=== PATIENT | male | born 1960 | race African-American/Black ===

== ENCOUNTER 2017-02-11 09:15 | Inpatient (IN) ==
[2017-02-11] MEDS ORDERED: ASPIRIN 325 MG TABLET PO STA (09:52)
[2017-02-11] MEDS ORDERED: NITROGLYCERIN 2% OINT 1 INCH/GM PACK TOP STA (09:52)
[2017-02-11] MEDS ORDERED: SODIUM CHLORIDE 0.9% 1,000 ML IV STA (09:52)
--- NOTE | 2017-02-11 09:57 | EKG Report ---
Stationary ECG Study [facility] ER Test Date: 02/11/2017 9:23:40 AM Pat Name: JASSI MATTHEW Department: Room: Gender: M Proctologist: : 1960 Requested by: Romeo Simmons Order Number: [id number] Reading MD: ORI SIM Intervals [place] Rate: 109 P: 62 NC: 148 QRS: 15 QRSD: 96 T: 80 QT: 364 QTc: 428 Interpretive Statements SINUS TACHYCARDIA NONSPECIFIC T-WAVE ABNORMALITY Electronically Signed On 02-13-17 13:54:32 CDT by ORI SIM [email or web address]
[2017-02-11 09:58] LABS: Basophils % 0.1 % (0.0-0.8); Eosinophils % 0.3 % (0.00-10.9); Hemoglobin 8.5 GM/DL (14.0-18.0); Immature Granulocytes % 0.2 %; Immature Granulocytes Absolute 0.02 #; Lymphocytes # 1.2 10*3/uL (1.4-4.0); Mean Corpuscular HGB Conc 32.7 GM/DL (32-36); Mean Corpuscular Hemoglobin 29 PG (27-34); Mean Corpuscular Volume 89.3 FL (87-102); Mean Platelet Volume 10.3 FL (9.6-12.0); Monocytes # 0.9 10*3/uL (0.11-0.8); Monocytes % 8.9 % (1.7-12.7); Neutrophils # 7.7 10*3/uL (1.4-7.4); Neutrophils % 78.5 % (38.7-73.9); Platelet Count 398 T/CUMM (130-400); Red Blood Count 2.91 MC/CUMM (3.8-5.5); White Blood Count 9.8 T/CUMM (4-12)
[2017-02-11] MEDS ORDERED: MORPHINE 2 MG/1 ML SYRINGE IV STA (10:00)
[2017-02-11] MEDS ORDERED: DIAZEPAM 10 MG/2 ML SYRINGE IV STA (10:00)
[2017-02-11] MEDS ORDERED: ASPIRIN 325 MG TABLET ONE (10:02)
[2017-02-11] MEDS ORDERED: NITROGLYCERIN 2% OINT 1 INCH/GM PACK TOP ONE (10:02)
[2017-02-11] MEDS ORDERED: MORPHINE 2 MG/1 ML SYRINGE ONE (10:02)
[2017-02-11 10:26] LABS: Alanine Aminotransferase 18 U/L (16-61); Albumin 2.2 G/DL (3.4-5.0); Alkaline Phosphatase 95 U/L (45-117); Aspartate Amino Transferase 14 U/L (0-37); Bilirubin,Total < 0.39 MG/DL (0.2-1.0); Blood Urea Nitrogen 8 MG/DL (7-18); Calcium 9.5 MG/DL (8.5-10.1); Glucose 93 MG/DL (74-106); Osmolality,Calculated 270.8 MOS/KG (273-304); Potassium 3.9 MMOL/L (3.5-5.1); Sodium 137 MMOL/L (136-145); Total Protein 6.6 G/DL (6.4-8.3)
[2017-02-11] MEDS ORDERED: DIAZEPAM 10 MG/2 ML SYRINGE ONE (10:37)
--- NOTE | 2017-02-11 10:55 | XRay Report ---
Exam: XR chest 1V portable Indication: Midline chest pain Comparison study: None Findings: The heart, mediastinum, and bony structures are within normal limits. Median sternotomy wiring is noted. There is no focal consolidation, pneumothorax or pleural effusion identified. Surgical hardware noted within the lower cervical spine is partially imaged. Impression: No acute cardiopulmonary process. PROCEDURE INTERPRETED AT [facility] DEPARTMENT OF RADIOLOGY Final Report Signed by: Trino Barajas
[2017-02-11 10:57] LABS: Apearance,Urine CLOUDY (Clear); Blood, Urine Negative (Negative); Glucose,Urine (UA) Negative (Negative); Ketones,Urine 20 mg/dL (Negative); Mucus,Urine Many /LPF (Occasional); Nitrite,Urine Positive (Negative); Protein,Urine >=500 MG/DL; RBC,Urine 36 /HPF (0-4); Urine Color Amber (Yellow); Urine Specific Gravity 1.031 (1.001-1.035); Urine Urobilinogen < 2.0 EU/DL (0.2-1.0); WBC,Urine 77 /HPF (0-6)
[2017-02-11 10:58] LABS: Bilirubin,Urine Small mg/dL (Negative)
[2017-02-11] MEDS ORDERED: PIPERACILLIN/TAZOBACTAM 3,375 MG in SODIUM CHLORIDE 0.9% 100 ML IV STA (11:33)
--- NOTE | 2017-02-11 11:33 | Emergency Department Note ---
Leti Valverde Hilary, am scribing for, and in the presence of, Romeo Simmons Jr., MD 09:51. Iris Valverde Marvin Jr., MD, personally performed the services described in this documentation, ascribed by Yocasta Landeros in my presence, and it is both accurate and complete 133 . Arrival - Arrival Chief Complaint: Chest Pain ED Nursing Triage Note: [facility]. pt c/o muscle pain last night. then this am started c/o cp and sob. pt doesnt like the residential he is in. pt also has bilateral shoulder pain Mode of Arrival: Stretcher Limitations: No Limitations Source: Patient, Family, Old Records Reviewed ([facility] records as well as previous ER visits reviewed, patient seen here November 26, 2016. Patient had been drinking and fell out of his chair, he was hypotensive, lactic acidosis, alcoholic ketoacidosis and a spinal cord injury at that time. He was transferred to [facility] in [place]), RN Notes Reviewed - History of Present Illness HPI Narrative: Pt is a 56 y/o black male brought to the ED via EMS from [facility] with c/o shoulder muscle spasms which onset last night. His son is in the room and reports that in December he fell on his head which might have knocked the plate in his neck loose because now he can't move from the neck down. Pt states that he was at [facility] last night and told them that he was having pain in both of his shoulders but they didn't give him his pain medication, just put a bunch of pillows around him and "locked him in his room". Pt confirms pain in both shoulders, like muscle spasms, and bed sores but denies fever, chills, nausea or vomiting. No other complaints or problems stated in the ED. patient says they have been pulling him up at [facility] by his shoulders and he thinks that is beckham hurting. He is also not had his pain medication Onset (ago): day(s) Consistency: constant Quality: other (spasms) Allergies/Adverse Reactions: Allergies Allergy/AdvReac Type Severity Reaction Status Date / Time No Known Allergies Allergy Verified 11/26/16 10:10 Home Medications: Home Medications Medication Instructions Recorded Confirmed Type Albuterol/Ipratropium Neb [Duoneb] 3 ml RESP TX RT Q6H PRN 02/11/17 02/11/17 History Apixaban [Eliquis] 5 mg PO BID 02/11/17 02/11/17 History Aspirin EC Tab 81 mg PO DAILY 02/11/17 02/11/17 History Bisacodyl Supp [Dulcolax Supp] 10 mg RECTAL DAILY PRN 02/11/17 02/11/17 History Citalopram Hydrobromide [Celexa] 10 mg PO DAILY 02/11/17 02/11/17 History Cyclobenzaprine HCl 5 mg PO TID PRN 02/11/17 02/11/17 History Famotidine 20 mg PO DAILY 02/11/17 02/11/17 History Insulin Aspart [NovoLOG] 0 unit SUBCUT ACHS PRN 02/11/17 02/11/17 History Lisinopril 20 mg PO DAILY 02/11/17 02/11/17 History Magnesium Oxide 400 mg PO BID 02/11/17 02/11/17 History Polyvinyl Alcohol 1.4% Oph Amena 1 drop BOTH EYES QID PRN 02/11/17 02/11/17 History [Artificial Tears Oph Soln] Ranitidine Tab [Zantac Tab] 150 mg PO DAILY PRN 02/11/17 02/11/17 History Simvastatin [Zocor] 20 mg PO BEDTIME 02/11/17 02/11/17 History diphenhydrAMINE HCl 25 mg PO Q6H PRN 02/11/17 02/11/17 History [diphenhydrAMINE Tab] Review of System - Review of System 12 point system: reviewed and no additional remarkable complaints except as stated - Review of System Constitutional: Absent: chills, fever Gastrointestinal: Present: nausea, vomiting Musculoskeletal: Present: other (Shoulder muscle spasms in both left and right) Skin: Present: other (bed sores ) Medical,Surgical,& Family Hx - Medical History Cardio: History of: CAD, Hypertension Genitourinary: History of: Recurring Urinary Tract Infections Hematology: History of: Anemia Other: History of: Miscellaneous Medical Problems (quadriplegia, pressure wounds ) - Surgical History Cardiac Surgeries: Sugical HX of: Cardiac Surgery (cabg) - Social History Smoking Status: Unknown if ever smoked Frequency of Alcohol Use: None Type of Drug Use: None Functional capacity: bed bound Exam Physical Examination: General: Well-developed well-nourished, no apparent distress. Head: Normocephalic, atraumatic. Eyes: PERRLA, EOMI. Nose: No obvious acute deformities or discharge. Mouth: No obvious acute injury. Neck: without obvious pain. No midline tender to palpation. Lymphatic: no significant lymphadenopathy noted. Lungs: Clear to auscultation bilaterally, normal and equal air movement bilaterally, no obvious rales or wheezing. Heart: regular rate and rhythm, no obvious mummers. Abdomen: Soft nontender, nondistended, normal active bowel sounds. PEG tube noted Skin: Large, full-thickness decubitus ulcer noted in the sacral area, covered with bandage, also decubitus noted on his right foot Musculoskeletal: Legs contracted, poor muscle mass Neurological: No focal findings, cranial nerves II through XII grossly normal. Patient with very limited use of his arms and essentially none in his legs, talks without difficulty, alert and oriented, Psychiatric: Appropriate mood.. : [place] in place Vital Signs: Vital Signs Temperature 98.5 F 02/11/17 09:21 Pulse Rate 108 H 02/11/17 09:21 Respiratory Rate 18 02/11/17 09:21 Blood Pressure 74/55 02/11/17 09:21 O2 Sat by Pulse Oximetry 100 02/11/17 09:21 Course Course Narrative: Differential diagnosis, acute on chronic pain, severe decubiti, urinary tract infection, hypotension, tachycardia, muscle spasms, - Reevaluation(s) Reevaluation #1: Patient with multiple issues identified. Patient is a quad, anemia, decubitus ulcers, urinary tract infection, I discussed this patient with the hospitalist service and they accept patient for admission. Patient persistently hypotensive but clinically has not changed. We do not know if this patient's baseline is but quadriplegia is commonly have a lower blood pressure. Will monitor this closely. prison notes indicate CODE STATUS is full code Time: 11:15 Results - Labs CBC & BMP: 02/11/17 09:34 02/11/17 09:34 Lab Results: I have reviewed the patients labs Labs: Laboratory Tests 02/11/17 09:34 WBC 9.8 RBC 2.91 L Hgb 8.5 L Hct 26.0 L MCV 89.3 MCH 29 MCHC 32.7 RDW 14.0 Plt Count 398 MPV 10.3 Neut % (Auto) 78.5 H Lymph % (Auto) 12.0 L Ada % (Auto) 8.9 Eos % (Auto) 0.3 Baso % (Auto) 0.1 Neut # (Auto) 7.7 H Lymph # (Auto) 1.2 L Ada # (Auto) 0.9 H Eos # (Auto) 0.0 Baso # (Auto) 0.0 Immature Gran % 0.2 Nucleated RBC % 0.0 Immature Gran # 0.02 Nucleated RBCs # 0.00 Laboratory Tests 02/11/17 02/11/17 09:34 09:34 Sodium 137 Potassium 3.9 Chloride 99 Carbon Dioxide 28 Anion Gap 13.9 BUN 8 Creatinine 0.50 L GFR Calculation 180 BUN/Creatinine Ratio 16.00 Glucose 93 Calculated Osmolality 270.8 L Calcium 9.5 Total Bilirubin < 0.39 AST 14 ALT 18 Alkaline Phosphatase 95 Troponin I < 0.015 Total Protein 6.6 Albumin 2.2 L Globulin 4.4 H Albumin/Globulin Ratio 0.5 L Laboratory Tests 02/11/17 10:48 Urine Color Yisel Urine Appearance Cloudy Urine pH 6.0 Ur Specific Lenore 1.031 Urine Protein >=500 Urine Glucose (UA) Negative Urine Ketones 20 Urine Blood Negative Urine Nitrate Positive H Urine Bilirubin Small H Urine Urobilinogen < 2.0 H Urine Leukocytes Small H Urine RBC 36 Urine WBC 77 Urine Mucus Many - EKG EKG results: interpreted by [facility] (Heart rate 109, narrow complex QRS complexes without obvious acute ST changes. Normal sinus rhythm) - Diagnostic Findings Procedure: Chest x-ray: report reviewed by me, image reviewed by me (No acute cardiopulmonary process) Critical Care Time Critical Care Time: Yes Total Critical Care Time: 30 (Hypotension, quadriplegia, urinary tract infection ,) Disposition Clinical Impression: Urinary tract infection, Anemia, Multiple decubitus ulcers, Quadriplegic Case discussed with: patient Disposition: Still a Patient Condition: Guarded Time of Disposition: 11:23
[2017-02-11] MEDS ORDERED: ONDANSETRON 4 MG/2 ML VIAL IV PRN (11:48)
[2017-02-11] MEDS ORDERED: PIPERACILLIN/TAZOBACTAM 3,375 MG in SODIUM CHLORIDE 0.9% 100 ML IV SCH (12:00)
[2017-02-11] MEDS ORDERED: ENOXAPARIN 40 MG/0.4 ML SYRINGE SUBCUT SCH (12:00)
[2017-02-11 12:16] LABS: Risk Ratio 2.71; VLDL CHOLESTEROL 11.6 MG/DL
[2017-02-11] MEDS ORDERED: PIPERACILLIN/TAZOBACTAM 3,375 MG VIAL IV ONE (12:23)
--- NOTE | 2017-02-11 12:38 | Hospitalist History & Physical ---
<Afua Snow - Last Filed: 02/11/17 11:56> Assessment and Plan (1) Decubital ulcer Status: Acute Assessment and plan: We will obtain cultures, start empiric antibiotics, and consult surgery to evaluate. Current Visit: Yes Qualifiers: Pressure ulcer location: sacral region Pressure ulcer stage: unspecified pressure ulcer stage Qualified Code(s): L89.159 - Pressure ulcer of sacral region, unspecified stage (2) Urinary tract infection Status: Acute Assessment and plan: We feel that this is chronic in nature. We will start empiric antibiotics and monitor. Current Visit: Yes (3) Anemia Status: Acute Assessment and plan: Hemoglobin and hematocrit noted at 8.5 and 26.0 at the time of admission. We will recheck and monitor. If levels continue to drop we may need to transfuse. Current Visit: Yes History of Present Illness Chief complaint: chest pain and shortness of breath History of present illness: This is a 56-year-old chronically ill male that presented to the ED at [facility] from the [place] [facility] here [facility] for the evaluation of chest pain and shortness of breath. The patient has a very complex medical history significant for coronary artery disease, hypertension, chronic urinary tract infections, anemia, quadriplegia, and chronic pressure ulcerations. The patient has a surgical history significant for coronary artery bypass graft. At the time of presentation the patient verbalized multiple complaints regarding the care he was receiving at this assisted facility. He attributed all of his current health complaints to the treatment that he is received therapy. He has main complaint at the time of presentation is muscle spasms. He reports an onset on last night. At the time of ED presentation the patient was grossly hypertensive with a systolic blood pressure above 200. Labs were obtained at the time of presentation, which reported a hemoglobin at 8.5, hematocrit at 26.0, neutrophil % at 78.5, lymphocytes % at 12.0, neutrophil #at 7.7, lymphocytes # at 1.2, and monocytes #at 0.9. Chemistry panels were obtained which reported a sodium at 137, potassium 3.9, chloride at 99, carbon dioxide at 28, anion gap at 13.9, BUN at 8, creatinine at 0.50, albumin at 2.2, globulin at 4.4, and calculated osmolality at 270.8. Urinalysis was obtained which was significant for positive findings of nitrite, small amount of bilirubin, small amount of leukocytes, urine RBCs at 36, urine WBCs of 77, and urobilinogen greater than 2.0. Chest x-ray was obtained and essentially benign with no acute cardiopulmonary processes noted. After brief discussion with both Dr. Simmons and Dr. Abdul, the patient will be admitted to the hospitalist services for continuation of care. Home Medications Medication Instructions Recorded Confirmed Type Albuterol/Ipratropium Neb [Duoneb] 3 ml RESP TX RT Q6H PRN 02/11/17 02/11/17 History Apixaban [Eliquis] 5 mg PO BID 02/11/17 02/11/17 History Aspirin EC Tab 81 mg PO DAILY 02/11/17 02/11/17 History Bisacodyl Supp [Dulcolax Supp] 10 mg RECTAL DAILY PRN 02/11/17 02/11/17 History Citalopram Hydrobromide [Celexa] 10 mg PO DAILY 02/11/17 02/11/17 History Cyclobenzaprine HCl 5 mg PO TID PRN 02/11/17 02/11/17 History Famotidine 20 mg PO DAILY 02/11/17 02/11/17 History Insulin Aspart [NovoLOG] 0 unit SUBCUT ACHS PRN 02/11/17 02/11/17 History Lisinopril 20 mg PO DAILY 02/11/17 02/11/17 History Magnesium Oxide 400 mg PO BID 02/11/17 02/11/17 History Polyvinyl Alcohol 1.4% Oph Amena 1 drop BOTH EYES QID PRN 02/11/17 02/11/17 History [Artificial Tears Oph Soln] Ranitidine Tab [Zantac Tab] 150 mg PO DAILY PRN 02/11/17 02/11/17 History Simvastatin [Zocor] 20 mg PO BEDTIME 02/11/17 02/11/17 History diphenhydrAMINE HCl 25 mg PO Q6H PRN 02/11/17 02/11/17 History [diphenhydrAMINE Tab] Allergies Allergy/AdvReac Type Severity Reaction Status Date / Time No Known Allergies Allergy Verified 11/26/16 10:10 Medical,Surgical,& Family Hx - Medical History Cardio: History of: CAD, Hypertension Genitourinary: History of: Recurring Urinary Tract Infections Hematology: History of: Anemia Other: History of: Miscellaneous Medical Problems (quadriplegia, pressure wounds ) - Surgical History Cardiac Surgeries: Sugical HX of: Cardiac Surgery (cabg) - Social History Smoking Status: Unknown if ever smoked Frequency of Alcohol Use: None Type of Drug Use: None 12 point system: reviewed and no additional remarkable complaints except as stated Exam - Constitutional Vitals: Period Temp Pulse Resp BP Sys/Agustin Pulse Ox Last 24 Hr 98.5 F-98.5 F 108-108 18-18 74-74/55-55 100 General appearance: normal weight, no acute distress - Head Head exam: Present: normal inspection, normocephalic, atraumatic - Eye Eye exam: Present: EOMI. Absent: conjunctival injection, nystagmus Pupils: Present: RHINA, normal accommodation - ENT ENT exam: Present: normal exam, normal external ear exam, normal oropharynx - Neck Neck exam: Present: normal inspection. Absent: lymphadenopathy, meningismus, tenderness, thyromegaly - Respiratory Respiratory exam: Present: clear to auscultation bilaterally. Absent: rales, rhonchi, stridor, wheezes - Cardiovascular Cardiovascular exam: Present: bradycardia, regular rate and rhythm. Absent: carotid bruit, diastolic murmur, gallop, JVD, rubs, systolic murmur - GI/Abdominal GI/Abdominal exam: Present: normal bowel sounds, soft. Absent: tenderness, rebound - Extremities Exam Extremities exam: Present: other (contractures noted to the bilateral lower extremties) - Back Exam Back exam: Present: muscle spasm, other - Neurological Exam Neurological exam: Present: alert, oriented X3 - Psychiatric Psychiatric exam: Present: normal affect, normal mood - Skin Skin exam: Present: normal color, warm Results - Labs CBC & BMP: 02/11/17 09:34 02/11/17 09:34 Lab Results: I have reviewed the past 24 hour labs <Austin Abdul - Last Filed: 02/11/17 14:18> History of Present Illness History of present illness: Mr. Montana is a 56 year old male Exam - Constitutional Vitals: Period Temp Pulse Resp BP Sys/Agustin Pulse Ox Last 24 Hr 97.9 F-98.5 F 99-108 16-18 74-95/43-55 100 Results - Labs CBC & BMP: 02/11/17 09:34 02/11/17 09:34
[2017-02-11] MEDS ORDERED: NOREPINEPHRINE 8 MG in SODIUM CHLORIDE 0.9% 242 ML IV SCH (14:30)
[2017-02-11 14:50] LABS: Basophils % 0.1 % (0.0-0.8); Eosinophils % 0.4 % (0.00-10.9); Hematocrit 21.7 VOL% (42.0-52.0); Hemoglobin 7.2 GM/DL (14.0-18.0); Immature Granulocytes % 0.3 %; Immature Granulocytes Absolute 0.03 #; Lymphocytes # 1.1 10*3/uL (1.4-4.0); Lymphocytes % 9.8 % (21.2-54.2); Mean Corpuscular HGB Conc 33.2 GM/DL (32-36); Mean Corpuscular Hemoglobin 29 PG (27-34); Mean Corpuscular Volume 88.2 FL (87-102); Mean Platelet Volume 10.1 FL (9.6-12.0); Monocytes # 1.1 10*3/uL (0.11-0.8); Monocytes % 9.8 % (1.7-12.7); Neutrophils # 8.7 10*3/uL (1.4-7.4); Neutrophils % 79.6 % (38.7-73.9); Platelet Count 345 T/CUMM (130-400); Red Blood Count 2.46 MC/CUMM (3.8-5.5); Red Cell Distribution Width 14.2 % (9.3-17.3); White Blood Count 10.9 T/CUMM (4-12)
[2017-02-11] MEDS: MEROPENEM 1,000 MG in SODIUM CHLORIDE 0.9% 100 ML IV SCH ×2 (15:09→23:23)
[2017-02-11 15:10] LABS: Ferritin 641.9 ng/ml (26-388); Troponin I Only < 0.015 NG/ML (0.00-0.045)
[2017-02-11] MEDS: SODIUM CHLORIDE 0.9% 1,000 ML IV SCH ×2 (15:10→20:21)
[2017-02-11 15:17] LABS: Lactic Acid 0.7 MMOL/L (0.4-2.0)
[2017-02-11 15:17] LABS: Folate 19.4 NG/ML (5.4-24.0); Vitamin B12 382 PG/ML (211-911)
[2017-02-11 15:51] LABS: Sedimentation Rate-Westergren 135 MM/HR (0-20)
[2017-02-11] MEDS ORDERED: SODIUM CHLORIDE 0.9% 250 ML IV PRN (16:09)
[2017-02-11] MEDS: VANCOMYCIN INJ 1,250 MG in SODIUM CHLORIDE 0.9% 250 ML IV SCH (17:48)
[2017-02-11] MEDS: MORPHINE 2 MG/1 ML SYRINGE IV PRN (20:22)
[2017-02-11] MEDS: CYCLOBENZAPRINE 10 MG TABLET PO PRN (20:22)
[2017-02-11] MEDS: DOCUSATE SODIUM 100 MG CAPSULE PO SCH (20:22)
[2017-02-11] MEDS: APIXABAN 5 MG TABLET PO SCH (20:22)
--- NOTE | 2017-02-11 20:44 | CT Report ---
Exam: CT chest PE study The total DLP is 341 mGy*cm. Date: 02/11/2017 2:01 PM Indication: Hypertension, chest pain Comparison: Chest radiograph dated 02/11/2017 Technical: Images were obtained from the thoracic inlet through the lung bases with 80 cc of Omnipaque 350 with axial and coronal imaging available for review. Dose reduction: This CT exam was performed using one or more of the following dose reduction techniques: Automated exposure control, automated adjustment of the mA and/or KV according to patient size, or use of iterative reconstruction technique. Findings: Pulmonary arteries: Please note, the degree of pulmonary arterial contrast opacification is severely suboptimal due to contrast bolus timing. Evaluation is made within these technical confines. Pulmonary arteries are patent and well-opacified with no filling defects to suggest pulmonary emboli. Distal segmental/subsegmental pulmonary arteries are poorly evaluated due to contrast bolus timing and/or patient motion. Mediastinum/vessels/lymph nodes: Heart and great vessels appear unremarkable. There is no evidence of pericardial effusion. The aorta and great vessels appear widely patent. There is no adenopathy in the chest. Lungs: The lungs are clear. There is no pneumothorax or pleural effusion. There is no focal consolidation. No suspicious pulmonary nodules or masses are identified. Thyroid: Thyroid gland appears within normal limits. No acute abnormality is identified within the visualized upper abdomen. Gastric feeding tube is partially imaged within the upper abdomen/gastric lumen. BONES: No acute or suspicious appearing osseous abnormalities are identified. Median sternotomy wiring is noted. Partially imaged cervical fusion hardware. Impression: 1. Severely suboptimal contrast bolus timing limits evaluation. No definite central or saddle pulmonary emboli are visualized. 2. No other acute abnormality within the chest or upper abdomen to explain patient's symptoms. PROCEDURE INTERPRETED AT [facility] DEPARTMENT OF RADIOLOGY Final Report Signed by: Trino Barajas
[2017-02-12] MEDS: VANCOMYCIN INJ 1,250 MG in SODIUM CHLORIDE 0.9% 250 ML IV SCH ×2 (04:23→15:35)
[2017-02-12] MEDS: SODIUM CHLORIDE 0.9% 1,000 ML IV SCH ×4 (04:24→17:26)
[2017-02-12 04:36] LABS: Hemoglobin 9.5 GM/DL (14.0-18.0)
[2017-02-12 04:49] LABS: Basophils % 0.1 % (0.0-0.8); Eosinophils # 0.1 10*3/uL (0.0-0.87); Eosinophils % 1.5 % (0.00-10.9); Hematocrit 29.3 VOL% (42.0-52.0); Hemoglobin 9.7 GM/DL (14.0-18.0); Immature Granulocytes % 0.3 %; Immature Granulocytes Absolute 0.02 #; Lymphocytes # 1.3 10*3/uL (1.4-4.0); Lymphocytes % 17.6 % (21.2-54.2); Mean Corpuscular HGB Conc 33.1 GM/DL (32-36); Mean Corpuscular Hemoglobin 29 PG (27-34); Mean Corpuscular Volume 88.8 FL (87-102); Mean Platelet Volume 10.4 FL (9.6-12.0); Monocytes % 13.4 % (1.7-12.7); Neutrophils # 4.9 10*3/uL (1.4-7.4); Neutrophils % 67.1 % (38.7-73.9); Platelet Count 349 T/CUMM (130-400); Red Cell Distribution Width 14.4 % (9.3-17.3); White Blood Count 7.3 T/CUMM (4-12)
[2017-02-12 05:05] LABS: Bilirubin,Total 0.8 MG/DL (0.2-1.0); Calcium 8.4 MG/DL (8.5-10.1); Magnesium 1.5 MG/DL (1.8-2.4); Osmolality,Calculated 278.1 MOS/KG (273-304); Potassium 3.6 MMOL/L (3.5-5.1); Total Protein 5.9 G/DL (6.4-8.3)
[2017-02-12] MEDS: MEROPENEM 1,000 MG in SODIUM CHLORIDE 0.9% 100 ML IV SCH ×3 (06:33→21:47)
[2017-02-12] MEDS ORDERED: GLUCAGON 1 MG VIAL IM PRN (08:02)
[2017-02-12] MEDS ORDERED: MAGNESIUM SULF RIDER 2 GM in PREMIX 1 EACH IV ONE (08:02)
[2017-02-12] MEDS ORDERED: DEXTROSE 50% 25 GM/50 ML VIAL IV PRN (08:02)
--- NOTE | 2017-02-12 09:06 | General Surgery Consult Note ---
Assessment and Plan - Time spent with patient Time spent with patient: Greater than 30 minutes (1) Decubital ulcer Status: Acute Assessment and plan: Impression: Decubitus ulcer of the sacrum stage III Plan local care primarily with Santyl try to clean the base. Current Visit: Yes Qualifiers: Pressure ulcer location: sacral region Pressure ulcer stage: stage 3 Qualified Code(s): L89.153 - Pressure ulcer of sacral region, stage 3 (2) Decubitus ulcer Status: Acute Current Visit: Yes (3) Decubitus ulcer of right heel, stage 2 Status: Acute Assessment and plan: Impression: Decubitus ulcer right heel stage II Plan: Local wound care Current Visit: Yes (4) Quadriplegia Status: Acute Assessment and plan: Impression: Quadriplegia with some spastic disease and contracture of the lower extremities Current Visit: Yes History of Present Illness Chief complaint: Sacral and right heel ulcers. History of present illness: Mr. Montana is a 56 year old male who presents with a history of some spinal disease or surgery resulted in a quadriplegia with spasm. He is now bedridden patient with contractures of lower extremities at this time. He came in with possible sepsis and is been given some transfusions and blood in his become a little more stable at this time. He comes in with ulcers of the sacrum and the right heel that he says obtained down in [place]. We were consulted to see these see what we can do to get them cleaned up and improved at this time. Home Medications Medication Instructions Recorded Confirmed Type Albuterol/Ipratropium Neb [Duoneb] 3 ml RESP TX RT Q6H PRN 02/11/17 02/11/17 History Apixaban [Eliquis] 5 mg PO BID 02/11/17 02/11/17 History Aspirin EC Tab 81 mg PO DAILY 02/11/17 02/11/17 History Bisacodyl Supp [Dulcolax Supp] 10 mg RECTAL DAILY PRN 02/11/17 02/11/17 History Citalopram Hydrobromide [Celexa] 10 mg PO DAILY 02/11/17 02/11/17 History Cyclobenzaprine HCl 5 mg PO TID PRN 02/11/17 02/11/17 History Famotidine 20 mg PO DAILY 02/11/17 02/11/17 History Insulin Aspart [NovoLOG] 0 unit SUBCUT ACHS PRN 02/11/17 02/11/17 History Lisinopril 20 mg PO DAILY 02/11/17 02/11/17 History Magnesium Oxide 400 mg PO BID 02/11/17 02/11/17 History Polyvinyl Alcohol 1.4% Oph Amena 1 drop BOTH EYES QID PRN 02/11/17 02/11/17 History [Artificial Tears Oph Soln] Ranitidine Tab [Zantac Tab] 150 mg PO DAILY PRN 02/11/17 02/11/17 History Simvastatin [Zocor] 20 mg PO BEDTIME 02/11/17 02/11/17 History diphenhydrAMINE HCl 25 mg PO Q6H PRN 02/11/17 02/11/17 History [diphenhydrAMINE Tab] Allergies Allergy/AdvReac Type Severity Reaction Status Date / Time No Known Allergies Allergy Verified 11/26/16 10:10 Medical,Surgical,& Family Hx - Medical History Cardio: History of: CAD, Hypertension, HI Renal: History of: Renal Problems (neurgenic bladder) Genitourinary: History of: Recurring Urinary Tract Infections Musculoskeletal: History of: Musculoskeletal Problems Hematology: History of: Anemia Other: History of: Miscellaneous Medical Problems (quadriplegia, pressure wounds ) - Surgical History Cardiac Surgeries: Sugical HX of: Cardiac Surgery (cabg) Neurologic Surgeries: Surgical HX of: Neurologic Surgery (lobnecktomy) Orthopedic Surgeries: Surgical HX of;: Spinal Surgery - Social History Smoking Status: Never smoker Frequency of Alcohol Use: None Type of Drug Use: None 12 point system: reviewed and no additional remarkable complaints except as stated Exam - Constitutional Vitals: Period Temp Pulse Resp BP Sys/Agustin Pulse Ox Last 24 Hr 97.9 F-99.0 F 74-108 11-33 73-136/40-84 96-100 General appearance: mild distress - Head Head exam: Present: normal inspection - ENT ENT exam: Present: normal exam - Neck Neck exam: Present: normal inspection - Respiratory Respiratory exam: Present: rales, rhonchi - Cardiovascular Cardiovascular exam: Present: RRR - GI/Abdominal GI/Abdominal exam: Present: hypoactive bowel sounds, soft, other (Having bowel movement). Absent: distended, tenderness - Extremities Exam Extremities exam: Present: other (Both lower extremities are contracted at this time at the knee. There is an ulcer on the right heel that appears to be a stage II at this time. Changes in both arms and hands due to his quadriplegia.) - Back Exam Back exam: Present: other (Sacral ulcer present that appears to be stage III although there is an odor but this is probably related to a bowel movement is present at this time.) - Neurological Exam Neurological exam: Present: alert, oriented X3, other (Quadriplegia) - Skin Skin exam: Present: normal color, warm, dry Results - Labs CBC & BMP: 02/12/17 03:02 02/12/17 03:02 Lab Results: I have reviewed the past 24 hour labs
--- NOTE | 2017-02-12 09:06 | ECHO Report ---
Devendra Montana 02/12/2017 Exam Date: 07:42 Referring Physician: Sindhu Shelton Technologist: CASSIUS Age: 56 Ht (in): 76 Wt (lb): 170 MExam Location: [facility], [place] Gender: Echo [id number]: Chest pain, unspecified, Shortness Indications:of breath, CAD with previous CABG, UTI, Anemia BP: 111 / 70 HR: 84 SinusRhythm: Technical Quality: IMPRESSIONS Global hypokinesis with ejection fraction of 50%. There is grade 1 diastolic dysfunction Mild tricuspid regurgitation with right ventricular systolic pressure estimated be 27 mmHg plus right atrial pressure MEASUREMENTS (Male / Female) Normal Values 2D ECHO LV Diastolic Diameter PLAX 5.3 cm 4.2 - 5.9 / 3.9 - 5.3 cm LV Systolic Diameter PLAX 4.0 cm LV Fractional Shortening PLAX 25.9 % IVS Diastolic Thickness 0.8 cm 0.6 - 1.0 / 0.6 - 0.9 cm LVPW Diastolic Thickness 0.9 cm 0.6 - 1.0 / 0.6 - 0.9 cm RV Internal Dim ED PLAX 3.5 cm Aortic Root Diameter 3.3 cm LA Systolic Diameter LX 3.6 cm 3.0 - 4.0 / 2.7 - 3.8 cm DOPPLER TR Peak Velocity 259.0 cm/s TR Peak Gradient 26.8 mmHg FINDINGS Left Ventricle Normal left ventricular cavity size. Normal left ventricular wall thickness. Left ventricular ejection fraction is estimated at 50 %. There is no clear regional wall motion abnormality. Primary phimosis with grade 1 diastolic dysfunction. Right Ventricle The right ventricle is normal in size and function. Right Atrium The right atrium is mildly enlarged. Left Atrium The left atrium is mildly enlarged. Mitral Valve Morphologically normal mitral valve. No significant regurgitation noted Aortic Valve Mild aortic valve sclerosis without stenosis or regurgitation. There is calcification of the leaflet in the NCC. Tricuspid Valve Morphologically normal tricuspid valve. Trace to mild tricuspid valve regurgitation. Tricuspid regurgitation velocities suggest a RVSP of 27 mmHg plus the right atiral pressure. Pulmonic Valve Morphologically normal pulmonic valve. Trace pulmonary valve regurgitation. Pericardium Normal pericardium without effusion. Aorta Normal ascending aorta dimension. Essence Weeks (Electronically Signed) 12 February 2017 Final Date: 09:05
[2017-02-12] MEDS ORDERED: CHLORHEXIDINE 4% SOLN 118 ML BOTTLE TOP ONE (09:10)
--- NOTE | 2017-02-12 09:39 | Hospitalist Progress Note ---
Assessment and Plan (1) Urinary tract infection Status: Acute Assessment and plan: 1)ID- on vanc, merrem for UTI, culture pending. keith changed on admission- chronic indwelling since quadriplegia. Urine at this time has GPC. 2)hypotension- due to meds- recovered. continue IVF. 3)anemia- on Eliquis and asa, no sign of bleeding, check stool for blood. transfused yesterday with good bump in hgb. recheck in am. 4)decubitus ulcer- not infected per DR Sanchez, local care as he outlines. 5)dispo- to the floor today. 6)hypomagnesium- replace. Current Visit: Yes (2) Anemia Status: Acute Current Visit: Yes (3) Decubitus ulcer Status: Acute Current Visit: Yes (4) Decubitus ulcer of right heel, stage 2 Status: Acute Current Visit: Yes (5) Quadriplegia Status: Acute Current Visit: Yes Hospitalist: Subjective Interval history: MR Montana is doing well this morning. The nurse reports that once the nitropaste was taken off and the diazepam wore off his BP recovered, most recently SBP 145. Also he was transfused. He continues to have spasms. No chest pain, no complaint of shortness of breath. Exam - Constitutional Vitals: Period Temp Pulse Resp BP Sys/Agustin Pulse Ox Last 24 Hr 97.9 F-99.0 F 74-108 11-33 73-136/40-84 96-100 General appearance: normal weight, no acute distress - Eye Eye exam: Present: EOMI. Absent: scleral icterus Pupils: Present: RHINA - Respiratory Respiratory exam: Present: clear to auscultation bilaterally - Cardiovascular Cardiovascular exam: Present: regular rate and rhythm - GI/Abdominal GI/Abdominal exam: Present: normal bowel sounds, soft. Absent: tenderness - Extremities Exam Extremities exam: Absent: edema Results - Labs CBC & BMP: 02/12/17 03:02 02/12/17 03:02 Lab Results: I have reviewed the past 24 hour labs
[2017-02-12] MEDS: CITALOPRAM 20 MG TABLET PO SCH (10:12)
[2017-02-12] MEDS: APIXABAN 5 MG TABLET PO SCH ×2 (10:12→20:27)
[2017-02-12] MEDS: DOCUSATE SODIUM 100 MG CAPSULE PO SCH ×2 (10:13→20:27)
[2017-02-12] MEDS: PANTOPRAZOLE 40 MG TABLET PO SCH (10:13)
[2017-02-12] MEDS: CYCLOBENZAPRINE 10 MG TABLET PO PRN ×2 (10:34→21:46)
[2017-02-12] MEDS ORDERED: SKIN HEALING OINT (AQUAPHOR) 50 GM TUBE TOP PRN (13:44)
[2017-02-12] MEDS: INSULIN LISPRO 100 UNIT/ML SUBCUT SCH ×2 (14:04→18:34)
[2017-02-12] MEDS: COLLAGENASE OINT 30 GM TUBE TOP SCH (14:45)
[2017-02-12] MEDS: DESITIN 4OZ/NYSTATIN 15 GRAM MIXTURE PASTE TOP SCH ×2 (14:46→21:47)
[2017-02-12] MEDS: SODIUM HYPOCHLORITE 0.25% IRRIG 473 ML BOTTLE TOP SCH (14:46)
[2017-02-12] MEDS: MORPHINE 2 MG/1 ML SYRINGE IV PRN (20:27)
[2017-02-13] MEDS: INSULIN LISPRO 100 UNIT/ML SUBCUT SCH ×4 (00:42→19:41)
[2017-02-13] MEDS: MORPHINE 2 MG/1 ML SYRINGE IV PRN (00:52)
[2017-02-13 03:02] LABS: Basophils % 0.3 % (0.0-0.8); Eosinophils # 0.2 10*3/uL (0.0-0.87); Eosinophils % 2.4 % (0.00-10.9); Hematocrit 28.3 VOL% (42.0-52.0); Hemoglobin 9.3 GM/DL (14.0-18.0); Immature Granulocytes % 0.4 %; Immature Granulocytes Absolute 0.03 #; Lymphocytes # 1.6 10*3/uL (1.4-4.0); Lymphocytes % 22.7 % (21.2-54.2); Mean Corpuscular HGB Conc 32.9 GM/DL (32-36); Mean Corpuscular Hemoglobin 29 PG (27-34); Mean Corpuscular Volume 88.2 FL (87-102); Mean Platelet Volume 9.9 FL (9.6-12.0); Monocytes # 0.8 10*3/uL (0.11-0.8); Monocytes % 11.4 % (1.7-12.7); Neutrophils # 4.5 10*3/uL (1.4-7.4); Neutrophils % 62.8 % (38.7-73.9); Platelet Count 341 T/CUMM (130-400); Red Blood Count 3.21 MC/CUMM (3.8-5.5); Red Cell Distribution Width 14.6 % (9.3-17.3); White Blood Count 7.2 T/CUMM (4-12)
[2017-02-13] MEDS: CYCLOBENZAPRINE 10 MG TABLET PO PRN (03:16)
[2017-02-13 03:40] LABS: Calcium 8.6 MG/DL (8.5-10.1); Magnesium 1.6 MG/DL (1.8-2.4); Potassium 3.6 MMOL/L (3.5-5.1)
[2017-02-13] MEDS: VANCOMYCIN INJ 1,250 MG in SODIUM CHLORIDE 0.9% 250 ML IV SCH ×2 (03:55→16:36)
[2017-02-13] MEDS: SODIUM CHLORIDE 0.9% 1,000 ML IV SCH ×2 (04:08→15:34)
[2017-02-13] MEDS: MEROPENEM 1,000 MG in SODIUM CHLORIDE 0.9% 100 ML IV SCH ×3 (05:53→22:34)
[2017-02-13 07:22] LABS: Hemoglobin A1 (Alkaline) 97.5 % (96.5-98.5); Hemoglobin A2 (Alkaline) 2.5 % (1.5-3.5)
[2017-02-13] MEDS ORDERED: BUPIVACAINE MPF 0.25% /EPI 30 ML VIAL ONE (07:46)
[2017-02-13] MEDS ORDERED: SODIUM HYPOCHLORITE 0.25% IRRIG 473 ML BOTTLE TOP SCH (09:00)
[2017-02-13] MEDS: APIXABAN 5 MG TABLET PO SCH ×2 (09:20→20:43)
[2017-02-13] MEDS: CITALOPRAM 20 MG TABLET PO SCH (09:20)
[2017-02-13] MEDS: PANTOPRAZOLE 40 MG TABLET PO SCH (09:21)
[2017-02-13] MEDS: DOCUSATE SODIUM 100 MG CAPSULE PO SCH ×2 (09:21→20:43)
[2017-02-13] MEDS: ASPIRIN EC 81 MG TABLET PO SCH (09:21)
[2017-02-13] MEDS: DESITIN 4OZ/NYSTATIN 15 GRAM MIXTURE PASTE TOP SCH ×2 (09:26→20:43)
[2017-02-13] MEDS: COLLAGENASE OINT 30 GM TUBE TOP SCH (09:26)
[2017-02-13] MEDS ORDERED: TUBERCULIN SKIN TEST 0.1 ML SYRINGE INTRADERM ONE (11:22)
--- NOTE | 2017-02-13 11:55 | Pain Management Consult Note ---
Assessment and Plan (1) Chronic pain due to injury Status: Acute Assessment and plan: I would like to add Duragesic patch to help with sustained release of opioid medication and continue [place] as prescribed for right now Current Visit: Yes History of Present Illness Chief complaint: Chronic pain complaints History of present illness: Mr. Montana is a 56 year old male Patient with chronic pain complaints with a history of quadriplegia spasticity lower extremity chronic wounds in the lower extremities due to the quadriplegia and spasticity. Patient has chronic UTI due to indwelling urinary cath catheter. I will discuss the patient with the patient in detail and would like to add a long-acting medication to help with pain control. [place] has not completely controlling his symptoms. Home Medications Medication Instructions Recorded Confirmed Type Albuterol/Ipratropium Neb [Duoneb] 3 ml RESP TX RT Q6H PRN 02/11/17 02/11/17 History Apixaban [Eliquis] 5 mg PO BID 02/11/17 02/11/17 History Aspirin EC Tab 81 mg PO DAILY 02/11/17 02/11/17 History Bisacodyl Supp [Dulcolax Supp] 10 mg RECTAL DAILY PRN 02/11/17 02/11/17 History Citalopram Hydrobromide [Celexa] 10 mg PO DAILY 02/11/17 02/11/17 History Cyclobenzaprine HCl 5 mg PO TID PRN 02/11/17 02/11/17 History Famotidine 20 mg PO DAILY 02/11/17 02/11/17 History Insulin Aspart [NovoLOG] 0 unit SUBCUT ACHS PRN 02/11/17 02/11/17 History Lisinopril 20 mg PO DAILY 02/11/17 02/11/17 History Magnesium Oxide 400 mg PO BID 02/11/17 02/11/17 History Polyvinyl Alcohol 1.4% Oph Amena 1 drop BOTH EYES QID PRN 02/11/17 02/11/17 History [Artificial Tears Oph Soln] Ranitidine Tab [Zantac Tab] 150 mg PO DAILY PRN 02/11/17 02/11/17 History Simvastatin [Zocor] 20 mg PO BEDTIME 02/11/17 02/11/17 History diphenhydrAMINE HCl 25 mg PO Q6H PRN 02/11/17 02/11/17 History [diphenhydrAMINE Tab] Allergies Allergy/AdvReac Type Severity Reaction Status Date / Time No Known Allergies Allergy Verified 11/26/16 10:10 Medical,Surgical,& Family Hx - Medical History Cardio: History of: CAD, Hypertension, DC Renal: History of: Renal Problems (neurgenic bladder) Genitourinary: History of: Recurring Urinary Tract Infections Musculoskeletal: History of: Musculoskeletal Problems Hematology: History of: Anemia Other: History of: Miscellaneous Medical Problems (quadriplegia, pressure wounds ) - Surgical History Cardiac Surgeries: Sugical HX of: Cardiac Surgery (cabg) Neurologic Surgeries: Surgical HX of: Neurologic Surgery (lobnecktomy) Orthopedic Surgeries: Surgical HX of;: Spinal Surgery - Social History Smoking Status: Never smoker Frequency of Alcohol Use: None Type of Drug Use: None 12 point system: reviewed and no additional remarkable complaints except as stated Exam - Constitutional Vitals: Period Temp Pulse Resp BP Sys/Agustin Pulse Ox Last 24 Hr 97.4 F-99.5 F 82-102 15-21 105-135/69-86 100-100 General appearance: mild distress - Head Head exam: Present: normal inspection - Eye Eye exam: Present: EOMI Pupils: Present: RHINA - ENT ENT exam: Present: normal exam Ear exam: Present: intact - Neck Neck exam: Present: other (Decreased range of motion) - Respiratory Respiratory exam: Present: decreased breath sounds - GI/Abdominal GI/Abdominal exam: Present: hypoactive bowel sounds - Extremities Exam Extremities exam: Present: other (Spasticity and muscle wasting) - Back Exam Back exam: Present: vertebral tenderness - Neurological Exam Neurological exam: Present: alert, oriented X3 - Skin Skin exam: Present: dry Results - Labs CBC & BMP: 02/13/17 02:38 02/13/17 02:38 Lab Results: I have reviewed the past 24 hour labs
[2017-02-13] MEDS ORDERED: fentaNYL 25 MCG/HR PATCH TRANSDERM SCH (12:00)
[2017-02-13] MEDS: SODIUM HYPOCHLORITE 0.25% IRRIG 473 ML BOTTLE TOP SCH (12:23)
--- NOTE | 2017-02-13 13:26 | General Surgery Progress Note ---
Assessment and Plan (1) Decubital ulcer Status: Acute Assessment and plan: Impression: Decubitus ulcer of the sacrum stage III Plan local care primarily with Santyl try to clean the base. 02/13/2017. The decubitus ulcer sacrum and the right heel Are stable at this point time still early to see what count results with ahead with wound care. Wound care has begun and will follow this as long as we need to to get this area better shape. He still has quadriplegia with severe contractures and spasm at this time. Current Visit: Yes Qualifiers: Pressure ulcer location: sacral region Pressure ulcer stage: stage 3 Qualified Code(s): L89.153 - Pressure ulcer of sacral region, stage 3 (2) Decubitus ulcer Status: Acute Current Visit: Yes (3) Decubitus ulcer of right heel, stage 2 Status: Acute Assessment and plan: Impression: Decubitus ulcer right heel stage II Plan: Local wound care Current Visit: Yes (4) Quadriplegia Status: Acute Assessment and plan: Impression: Quadriplegia with some spastic disease and contracture of the lower extremities Current Visit: Yes Subjective Patient reports: Present: no new complaints, afebrile Exam - Constitutional Vitals: Period Temp Pulse Resp BP Sys/Agustin Pulse Ox Last 24 Hr 97.4 F-99.5 F 82-95 16-20 118-135/75-86 100-100 General appearance: mild distress - Head Head exam: Present: normal inspection - ENT ENT exam: Present: normal exam - Neck Neck exam: Present: normal inspection - Respiratory Respiratory exam: Present: clear to auscultation bilaterally, rales - Cardiovascular Cardiovascular exam: Present: RRR - GI/Abdominal GI/Abdominal exam: Present: hypoactive bowel sounds, soft - Extremities Exam Extremities exam: Present: other (Ulcer of the right heel seems to be stable at this time wound care is underway) - Back Exam Back exam: Present: other (Sacral ulcer still hard to see completely but looks in pretty good shape without deep necrotic tissue present) - Neurological Exam Neurological exam: Present: alert, oriented X3, CN II-XII intact, other ( Quadriplegia with spasm) - Skin Skin exam: Present: normal color, warm, dry Results - Labs CBC & BMP: 02/13/17 02:38 02/13/17 02:38 Lab Results: I have reviewed the past 24 hour labs
--- NOTE | 2017-02-13 19:31 | Hospitalist Progress Note ---
Assessment and Plan (1) Urinary tract infection Status: Chronic Current Visit: Yes Qualifiers: Urinary tract infection type: catheter-associated UTI (2) Anemia Status: Chronic Assessment and plan: Hematocrit is stable. CBC in a.m. Current Visit: Yes (3) Decubital ulcer Status: Chronic Current Visit: Yes Qualifiers: Pressure ulcer location: sacral region Pressure ulcer stage: stage 3 Qualified Code(s): L89.153 - Pressure ulcer of sacral region, stage 3 (4) Decubitus ulcer of right heel, stage 2 Status: Chronic Current Visit: Yes (5) Quadriplegia Status: Chronic Current Visit: Yes (6) Chronic pain due to injury Status: Chronic Current Visit: Yes Hospitalist: Subjective Interval history: The patient's condition is about the same. Resting comfortably no acute changes no fevers or chills. At this time awaiting further direction for discharge planning for a[facility] facility in the [facility]. Continue with local decubiti wound care. Exam - Constitutional Vitals: Period Temp Pulse Resp BP Sys/Agustin Pulse Ox Last 24 Hr 97.4 F-98.5 F 82-88 20-20 97-135/61-84 99-100 General appearance: normal weight - Head Head exam: Present: normal inspection - ENT ENT exam: Present: normal exam - Neck Neck exam: Present: normal inspection - Respiratory Respiratory exam: Present: clear to auscultation bilaterally - Cardiovascular Cardiovascular exam: Present: regular rate and rhythm - GI/Abdominal GI/Abdominal exam: Present: normal bowel sounds - Neurological Exam Neurological exam: Present: alert - Psychiatric Psychiatric exam: Present: flat affect - Skin Skin exam: Present: other (Sacral decubiti) Results - Labs CBC & BMP: 02/13/17 02:38 02/13/17 02:38
[2017-02-14] MEDS: INSULIN LISPRO 100 UNIT/ML SUBCUT SCH ×4 (01:51→18:08)
[2017-02-14] MEDS: VANCOMYCIN INJ 1,250 MG in SODIUM CHLORIDE 0.9% 250 ML IV SCH ×2 (03:11→16:47)
--- NOTE | 2017-02-14 06:12 | Pain Management Progress Note ---
Assessment and Plan (1) Chronic pain due to injury Status: Chronic Assessment and plan: I would like to add Duragesic patch to help with sustained release of opioid medication and continue [place] as prescribed for right now /6 continue current medications for pain until discharge Current Visit: Yes Pain - Subjective Interval history: pain is better controlled with addition of duragesic patch and is feeling much better Exam - Constitutional Vitals: Period Temp Pulse Resp BP Sys/Agustin Pulse Ox Last 24 Hr 97.6 F-98.5 F 76-87 20-22 97-127/61-82 90-99 General appearance: no acute distress - Head Head exam: Present: normal inspection - Eye Eye exam: Present: EOMI Pupils: Present: RHINA - ENT ENT exam: Present: normal exam Ear exam: Present: intact Mouth exam: Present: normal external inspection - Neck Neck exam: Present: normal inspection - Respiratory Respiratory exam: Present: decreased breath sounds - Cardiovascular Cardiovascular exam: Present: RRR - GI/Abdominal GI/Abdominal exam: Present: normal bowel sounds - Extremities Exam Extremities exam: Present: other (muscle wasting ) - Back Exam Back exam: Present: vertebral tenderness - Neurological Exam Neurological exam: Present: abnormal gait Results - Labs CBC & BMP: 02/13/17 02:38 02/13/17 02:38 Lab Results: I have reviewed the past 24 hour labs
[2017-02-14] MEDS: CYCLOBENZAPRINE 10 MG TABLET PO PRN ×2 (06:13→21:08)
[2017-02-14] MEDS: MEROPENEM 1,000 MG in SODIUM CHLORIDE 0.9% 100 ML IV SCH ×3 (06:14→23:07)
[2017-02-14 07:26] LABS: Basophils % 0.5 % (0.0-0.8); Eosinophils # 0.2 10*3/uL (0.0-0.87); Eosinophils % 2.9 % (0.00-10.9); Hematocrit 30.8 VOL% (42.0-52.0); Hemoglobin 9.9 GM/DL (14.0-18.0); Immature Granulocytes % 0.5 %; Immature Granulocytes Absolute 0.03 #; Lymphocytes # 1.4 10*3/uL (1.4-4.0); Lymphocytes % 22.2 % (21.2-54.2); Mean Corpuscular HGB Conc 32.1 GM/DL (32-36); Mean Corpuscular Hemoglobin 29 PG (27-34); Mean Corpuscular Volume 88.8 FL (87-102); Mean Platelet Volume 10.5 FL (9.6-12.0); Monocytes # 0.6 10*3/uL (0.11-0.8); Monocytes % 9.8 % (1.7-12.7); Neutrophils # 4.1 10*3/uL (1.4-7.4); Neutrophils % 64.1 % (38.7-73.9); Platelet Count 375 T/CUMM (130-400); Red Blood Count 3.47 MC/CUMM (3.8-5.5); Red Cell Distribution Width 14.6 % (9.3-17.3); White Blood Count 6.5 T/CUMM (4-12)
--- NOTE | 2017-02-14 08:17 | Hospitalist Progress Note ---
Assessment and Plan (1) Quadriplegia Status: Chronic Assessment and plan: Associated urinary tract colonization, contractures, sacral and heel pressure injuries. Current Visit: Yes (2) Coronary artery disease Status: Chronic Assessment and plan: History of aortocoronary bypass grafting. Current Visit: Yes Hospitalist: Subjective Interval history: 56-year-old male with chronic quadriplegia with history of previous neurologic surgery involving lobectomy and cervical spine surgery who has a history of chronic bladder colonization. He was admitted with hypotension and anemia with history of previous aortocoronary bypass grafting and chest discomfort. Cardiac biomarkers were negative. Blood pressure responded to volume and renal function remained stable. He has lower extremity contractures associated with pressure injury to the sacrum and heel areas. His urine culture was positive for staph epidermidis with no other positive cultures. He has pending the release to a different rehab center. Exam - Constitutional Vitals: Period Temp Pulse Resp BP Sys/Agustin Pulse Ox Last 24 Hr 97.1 F-98.5 F 68-87 20-22 97-125/57-81 90-99 General appearance: normal weight - Respiratory Respiratory exam: Present: clear to auscultation bilaterally. Absent: rales, rhonchi, wheezes - Cardiovascular Cardiovascular exam: Present: regular rate and rhythm - GI/Abdominal GI/Abdominal exam: Present: normal bowel sounds. Absent: tenderness - Extremities Exam Extremities exam: Present: other (Lower extremity contractures). Absent: edema - Neurological Exam Neurological exam: Present: alert, oriented X3 Results - Labs CBC & BMP: 02/14/17 06:41 02/13/17 02:38
[2017-02-14] MEDS: MORPHINE 2 MG/1 ML SYRINGE IV PRN ×2 (09:01→18:49)
[2017-02-14] MEDS: CITALOPRAM 20 MG TABLET PO SCH (09:04)
[2017-02-14] MEDS: ASPIRIN EC 81 MG TABLET PO SCH (09:05)
[2017-02-14] MEDS: DOCUSATE SODIUM 100 MG CAPSULE PO SCH ×2 (09:05→21:07)
[2017-02-14] MEDS: PANTOPRAZOLE 40 MG TABLET PO SCH (09:05)
[2017-02-14] MEDS: APIXABAN 5 MG TABLET PO SCH ×2 (09:05→21:07)
[2017-02-14] MEDS: SODIUM CHLORIDE 0.9% 1,000 ML IV SCH (09:12)
[2017-02-14] MEDS: SODIUM HYPOCHLORITE 0.25% IRRIG 473 ML BOTTLE TOP SCH (09:14)
[2017-02-14] MEDS: COLLAGENASE OINT 30 GM TUBE TOP SCH (09:15)
[2017-02-14] MEDS: DESITIN 4OZ/NYSTATIN 15 GRAM MIXTURE PASTE TOP SCH ×2 (09:15→23:07)
[2017-02-15] MEDS: INSULIN LISPRO 100 UNIT/ML SUBCUT SCH ×3 (01:00→11:51)
[2017-02-15] MEDS: VANCOMYCIN INJ 1,250 MG in SODIUM CHLORIDE 0.9% 250 ML IV SCH (02:58)
[2017-02-15] MEDS: SODIUM CHLORIDE 0.9% 1,000 ML IV SCH (04:23)
--- NOTE | 2017-02-15 06:05 | Pain Management Progress Note ---
Assessment and Plan (1) Chronic pain due to injury Status: Chronic Assessment and plan: I would like to add Duragesic patch to help with sustained release of opioid medication and continue [place] as prescribed for right now 02/14 continue current medications for pain until discharge 02/15 continue current medications for pain Current Visit: Yes Pain - Subjective Interval history: The patient seems stable on the current pain treatment regimen Exam - Constitutional Vitals: Period Temp Pulse Resp BP Sys/Agustin Pulse Ox Last 24 Hr 97.6 F-99.5 F 18-90 18-20 104-145/69-91 94-99 General appearance: mild distress - Head Head exam: Present: normal inspection - Eye Eye exam: Present: EOMI Pupils: Present: RHINA - ENT ENT exam: Present: normal exam Ear exam: Present: intact - Neck Neck exam: Present: normal inspection - Respiratory Respiratory exam: Present: decreased breath sounds - Cardiovascular Cardiovascular exam: Present: RRR - GI/Abdominal GI/Abdominal exam: Present: hypoactive bowel sounds - Back Exam Back exam: Present: vertebral tenderness - Neurological Exam Neurological exam: Present: abnormal gait Results - Labs CBC & BMP: 02/14/17 06:41 02/13/17 02:38 Lab Results: I have reviewed the past 24 hour labs
[2017-02-15] MEDS: MEROPENEM 1,000 MG in SODIUM CHLORIDE 0.9% 100 ML IV SCH (06:28)
--- NOTE | 2017-02-15 07:53 | Hospitalist Progress Note ---
Assessment and Plan (1) Quadriplegia Status: Chronic Assessment and plan: Associated urinary tract colonization, contractures, sacral and heel pressure injuries. Current Visit: Yes (2) Coronary artery disease Status: Chronic Assessment and plan: History of aortocoronary bypass grafting. Current Visit: Yes Hospitalist: Subjective Interval history: 56-year-old male with quadriplegia who was admitted to the hospital with hypotension and anemia. He complained of chest discomfort with previous history of aortocoronary bypass grafting with cardiac biomarkers were negative. He responded to IV fluid. His only culture positivity was for urine with staph epidermidis. He has contractures associated with pressure injuries to the sacrum and heel areas which are being addressed. He has chronic pain disorder has been seen by pain management who were introducing progressive therapy. The patient states that the pain continues to be significant. He is afebrile vital signs are stable and capillary blood glucoses are adequately regulated. He is pending release to a different nursing care center. Exam - Constitutional Vitals: Period Temp Pulse Resp BP Sys/Agustin Pulse Ox Last 24 Hr 97.6 F-99.5 F 18-90 18-20 104-145/69-91 94-99 General appearance: normal weight - Respiratory Respiratory exam: Present: clear to auscultation bilaterally. Absent: rales, rhonchi, wheezes - Cardiovascular Cardiovascular exam: Present: regular rate and rhythm - GI/Abdominal GI/Abdominal exam: Present: normal bowel sounds. Absent: tenderness - Extremities Exam Extremities exam: Present: other (Lower extremity contractures). Absent: edema - Neurological Exam Neurological exam: Present: alert, oriented X3 Results - Labs CBC & BMP: 02/14/17 06:41 02/13/17 02:38
[2017-02-15] MEDS: CYCLOBENZAPRINE 10 MG TABLET PO PRN (08:59)
[2017-02-15] MEDS: ASPIRIN EC 81 MG TABLET PO SCH (08:59)
[2017-02-15] MEDS: APIXABAN 5 MG TABLET PO SCH (08:59)
[2017-02-15] MEDS: CITALOPRAM 20 MG TABLET PO SCH (08:59)
[2017-02-15] MEDS: DOCUSATE SODIUM 100 MG CAPSULE PO SCH (09:00)
[2017-02-15] MEDS: PANTOPRAZOLE 40 MG TABLET PO SCH (09:00)
[2017-02-15] MEDS: DESITIN 4OZ/NYSTATIN 15 GRAM MIXTURE PASTE TOP SCH (09:01)
[2017-02-15] MEDS: COLLAGENASE OINT 30 GM TUBE TOP SCH (09:01)
[2017-02-15] MEDS: SODIUM HYPOCHLORITE 0.25% IRRIG 473 ML BOTTLE TOP SCH (09:01)
[2017-02-15 09:39] VITALS: BP 97/53
--- NOTE | 2017-02-15 09:42 | Discharge Summary ---
Hospital Course - Hospital Course Hospital Course: 56-year-old male with quadriplegia who was admitted to the hospital with hypotension and anemia he complained of chest pain at admission with a previous history of aortocoronary bypass grafting. Subsequent to admission cardiac biomarkers were negative he responded with normalization of blood pressure with IV fluids along his only positive culture was for urine for staph epidermidis ( contaminant) the patient has chronic pressure injuries involving his heels and his sacral area which were addressed during the hospital stay. Due to ongoing pain the patient was seen by pain management and medication adjustments were undertaken. Subsequent to admission patient's vital signs were stable he remained afebrile laboratory workup was stable throughout. He is to be discharged today for admission for nursing care center. Diagnosis - Discharge Diagnosis (1) Quadriplegia Status: Chronic (2) Coronary artery disease Status: Chronic Discharge Plan - Discharge Data Disposition: Disch/Xfer to Snf Condition at Discharge: Stable Discharge Diet: advance to your usual diet - Discharge Medications New Aspirin EC Tab 81 mg PO DAILY tablet Citalopram [CeleXA] 10 mg PO DAILY tablet Collagenase Oint [Santyl Oint] 1 applic TOP DAILY applic Dextrose 50% [D50] 25 gm IV PRN PRN vial PRN Reason: Hypoglycemia with IV access fentaNYL 25 MCG/HR PATCH [Duragesic 25 Patch] 1 patch TRANSDERM Q3DAY patch Glucagon 1 mg IM PRN PRN vial PRN Reason: Hypoglycemia w/o IV access HYDROcodone/ACETAMIN 10-325 [[place] 10-325] 1 tablet PO Q4H PRN tablet PRN Reason: Pain Severe (8-10) Skin Healing Oint (Aquaphor) [Aquaphor] 1 applic TOP PRN PRN applic PRN Reason: Dry Skin Sodium Hypochlorite 0.25% Irr [Dakins 1/2 Strength 0.25% Soln] 1 applic TOP DAILY applic Apixaban [Eliquis] 5 mg PO BID tablet Cyclobenzaprine [Flexeril] 5 mg PO TID PRN tablet PRN Reason: Muscle Spasm Insulin Lispro [HumaLOG] See Protocol SUBCUT Q6HR unit Continue Ranitidine Tab [Zantac Tab] 150 mg PO DAILY PRN PRN Reason: Heartburn Lisinopril 20 mg PO DAILY Magnesium Oxide 400 mg PO BID Albuterol/Ipratropium Neb [Duoneb] 3 ml RESP TX RT Q6H PRN PRN Reason: Shortness Of Breath/Wheezing Polyvinyl Alcohol 1.4% Oph Amena [Artificial Tears Oph Soln] 1 drop BOTH EYES QID PRN PRN Reason: Dry Eyes Cyclobenzaprine HCl 5 mg PO TID PRN PRN Reason: MUSCLE SPASMS Simvastatin [Zocor] 20 mg PO BEDTIME Bisacodyl Supp [Dulcolax Supp] 10 mg RECTAL DAILY PRN PRN Reason: Constipation Discontinued Aspirin EC Tab 81 mg PO DAILY Apixaban [Eliquis] 5 mg PO BID Citalopram Hydrobromide [Celexa] 10 mg PO DAILY diphenhydrAMINE HCl [diphenhydrAMINE Tab] 25 mg PO Q6H PRN PRN Reason: Itching Famotidine 20 mg PO DAILY No Action Insulin Aspart [NovoLOG] 0 unit SUBCUT ACHS PRN PRN Reason: HYPERGLYCEMIA - Follow Up or Referral - Forms/Instructions Exam - Constitutional Vitals: Period Temp Pulse Resp BP Sys/Agustin Pulse Ox Last 24 Hr 97.4 F-99.5 F 18-90 18-20 97-145/53-85 94-99 Discharge Results Procedures and tests throughout hospitalization: Pending Orders 02/11/17 14:30 Blood Culture Routine 02/15/17 14:30 Vancomycin,Trough Timed Labs on day of discharge: Labs from last 24 hours 02/15/17 02/15/17 02/15/17 07:25 06:23 00:54 POC Glucose 162 H 69 L 89 02/14/17 02/14/17 02/14/17 20:45 18:06 15:05 POC Glucose 139 H 113 H 97 02/14/17 10:57 POC Glucose 93 Preliminary micro results at discharge 02/11/17 14:30 Blood Culture - Preliminary Blood No growth at 3 days 02/11/17 14:30 Blood Culture - Preliminary Blood No growth at 3 days DS: Provider Date of admission: 02/11/17 11:46 Primary care physician: . No PCP Attending physician on admission: Austin Abdul MD Consults: 02/11/17 11:50 Consult to Wound Care - [place] [CONS] Routine Reason for Wound Care: Wound Care Management 02/11/17 13:28 Consult to Dietitian [CONS] Routine Reason for Dietitian: Dietary Consult 02/11/17 13:56 Consult to Physician [CONS] Routine Comment: CP, ST depre, hypotension in a pt with CAD Consulting Provider: Cardiology - [facility] Consult to Specialist Group: Cardiology Person Notified: Dr. Rodriguez Date Notified: 02/11/17 Time Notified: 16:08 02/11/17 14:03 Consult to Pharmacy [CONS] Routine Reason for Pharmacy Consult: Dose/Manage Vancomycin 02/11/17 15:53 Consult to Physician [CONS] Routine Comment: decub ulcer, sacral and heel Consulting Provider: Negro Sanchez Consult to Specialist Group: Surgery When should Consulting Provider be notified: In am Person Notified: Dr. Sanchez Date Notified: 02/12/17 Time Notified: 08:21 02/12/17 09:14 Consult to Wound Care - [place] [CONS] Routine Reason for Wound Care: Wound Care Management 02/12/17 09:17 Consult to Physician [CONS] Routine Comment: Consulting Provider: Tomas Schwartz Consult to Specialist Group: Pain Management When should Consulting Provider be notified: In am Person Notified: JONA Date Notified: 02/13/17 Time Notified: 08:00 Consult Notification Comment: Quadriplegic with spasm and contractures please evaluate and help with management 02/13/17 11:22 Consult to Physical Therapy [CONS] Routine Reason for Physical Therapy: Weakness Discharging clinician: Junaid Lynch MD Expected date of discharge: 02/15/17
--- NOTE | 2017-02-20 11:25 | Physician Query Form ---
CLICK EDIT DOCUMENT TO SELECT QUERY ANSWER --> OK --> SIGN Saira Craig RN Clinical Accountant Assistant W) [phone] (f) [phone] [email or web address] PROVIDERS: Make your selection(s) from the choices in EACH section by typing an "x" and enter comments in the comment section. Please use your independent medical judgment in providing your response. This request does not imply that any particular answer is desired or expected. CLINICAL INDICATORS: (Providers should not edit this section) Based on documentation of "UTI" and "chronic indwelling keith catheter". Pt. treated with IV Merrem. Based on the above, could you clarify the appropriate diagnosis, if significant , that supports the above abnormalities and additional evaluation, monitoring, and/or treatment rendered: (x ) UTI due to chronic indwelling catheter ( ) UTI not due to chronic indwelling catheter ( ) Other, please specify: ( ) Clinically unable to determine COMMENTS: PLEASE ALSO DOCUMENT RESPONSE IN PROGRESS NOTES AND/OR DISCHARGE SUMMARY Use of terms such as suspected, likely, or probable (associated with a specific diagnosis that is being evaluated, monitored, or treated as if it exists) are acceptable and can be restated in the discharge summary if not ruled out. [facility]
== END 2017-02-15 11:55 | DRG 698 ==
LOC: N.ED 09:15 → SUATTDRO 11:46 → N.EDINP 11:46 → N.2E 12:14 → N.CC 13:05 → N.2E 02-12 17:02
PROVIDERS: ADMIT Internal Medicine; ATTEND Internal Medicine Cardiovascular Disease

== ENCOUNTER 2017-05-11 08:40 | Inpatient (IN) ==
[2017-05-11] MEDS ORDERED: SODIUM CHLORIDE 0.9% 1,000 ML IV STA (09:30)
[2017-05-11] MEDS ORDERED: cefTRIAXone 1,000 MG in SODIUM CHLORIDE 0.9% 100 ML IV STA (09:30)
--- NOTE | 2017-05-11 09:32 | Emergency Department Note ---
Leti Valverde Hilary, am scribing for, and in the presence of, Major Colin MD 09:31. Cristi Valverde Charles R, MD, personally performed the services described in this documentation, ascribed by Yocasta Landeros in my presence, and it is both accurate and complete 932 . Arrival - Arrival Chief Complaint: Altered Mental Status ED Nursing Triage Note: Brought in by EMS, sent from [facility] for further evaluation of altered LOC, onset last night. AOX4 now. Reports that he started having hallucinations after receiving [place] 10 and a Fentanyl patch last night. Nursing staff reports temp of 100.9 Mode of Arrival: Stretcher Limitations: No Limitations Source: Patient, RN Notes Reviewed Time Seen by Provider: 05/11/17 09:14 - History of Present Illness HPI Narrative: Pt is 56 y/o male brought to the ED via EMS from [facility] for further evaluation after altered LOC which onset last night. Pt states that the [facility] gave him [place] 10 a Fentanyl patch and a boost bar and after that he started to have hallucinations and "went crazy". He is feeling better today and states that he feels normal now. Pt has a PMHx of MS and neurgenic bladder. No other complaints or problems stated in the ED. Onset (ago): hour(s) Consistency: now resolved Severity: mild Severity scale (1-10): 2 Allergies/Adverse Reactions: Allergies Allergy/AdvReac Type Severity Reaction Status Date / Time No Known Allergies Allergy Verified 11/26/16 10:10 Home Medications: Home Medications Medication Instructions Recorded Confirmed Type Albuterol/Ipratropium Neb [Duoneb] 3 ml RESP TX RT Q6H PRN 02/11/17 02/11/17 History Bisacodyl Supp [Dulcolax Supp] 10 mg RECTAL DAILY PRN 02/11/17 02/11/17 History Cyclobenzaprine HCl 5 mg PO TID PRN 02/11/17 02/11/17 History Insulin Aspart [NovoLOG] 0 unit SUBCUT ACHS PRN 02/11/17 02/11/17 History Lisinopril 20 mg PO DAILY 02/11/17 02/11/17 History Magnesium Oxide 400 mg PO BID 02/11/17 02/11/17 History Polyvinyl Alcohol 1.4% Oph [place] 1 drop BOTH EYES QID PRN 02/11/17 02/11/17 History [Artificial Tears Oph Soln] Ranitidine Tab [Zantac Tab] 150 mg PO DAILY PRN 02/11/17 02/11/17 History Simvastatin [Zocor] 20 mg PO BEDTIME 02/11/17 02/11/17 History Apixaban [Eliquis] 5 mg PO BID tablet 02/15/17 Rx Aspirin EC Tab 81 mg PO DAILY tablet 02/15/17 Rx Citalopram [CeleXA] 10 mg PO DAILY tablet 02/15/17 Rx Collagenase Oint [Santyl Oint] 1 applic TOP DAILY applic 02/15/17 Rx Cyclobenzaprine [Flexeril] 5 mg PO TID PRN tablet 02/15/17 Rx Dextrose 50% [D50] 25 gm IV PRN PRN vial 02/15/17 Rx Glucagon 1 mg IM PRN PRN vial 02/15/17 Rx HYDROcodone/ACETAMIN 10-325 [[place] 1 tablet PO Q4H PRN tablet 02/15/17 Rx 10-325] Insulin Lispro [HumaLOG] See Protocol SUBCUT Q6HR unit 02/15/17 Rx Skin Healing Oint (Aquaphor) 1 applic TOP PRN PRN applic 02/15/17 Rx [Aquaphor] Sodium Hypochlorite 0.25% Irr 1 applic TOP DAILY applic 02/15/17 Rx [Dakins 1/2 Strength 0.25% Soln] fentaNYL 25 MCG/HR PATCH 1 patch TRANSDERM Q3DAY patch 02/15/17 Rx [Duragesic 25 Patch] Review of System - Review of System 12 point system: reviewed and no additional remarkable complaints except as stated - Review of System Constitutional: Present: diaphoresis. 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 Absent: mucous membranes dry - Neck Neck exam: Present: full ROM, trachea midline. Absent: tenderness - Chest Chest inspection: Present: symmetric chest wall rise. Absent: tenderness - Respiratory Respiratory exam: Present: rhonchi - Cardiovascular Cardiovascular exam: Present: normal rhythm, tachycardia, normal heart sounds. Absent: murmur, rubs, gallop - Abdominal Exam Abdominal exam: Present: soft, other (keith catheter taht is cloudy and filled with debri, colostomy bag and feeding tube present.). Absent: distention, tenderness - Extremities Exam Extremities exam: Absent: full ROM (contraction of all extremeties) - Neurological Exam Neurological exam: Present: alert, oriented X3, CN II-XII intact - Psychiatric Psychiatric exam: Present: normal affect, normal mood - Skin Skin exam: Present: warm, intact, normal color, diaphoresis. Absent: rash Course - Consultations Consultation #1: Hospitalist will admit patient Time: 12:01 Results - Labs CBC & BMP: 05/11/17 10:55 05/11/17 10:55 Lab Results: I have reviewed the patients labs Labs: Laboratory Tests 05/11/17 05/11/17 09:42 10:55 WBC 16.2 H RBC 2.56 L Hgb 6.6 L Hct 21.5 L MCV 84.0 L MCH 26 L MCHC 30.7 L Plt Count 406 H MPV 9.4 L Neut % (Auto) 85.0 H Lymph % (Auto) 6.4 L Neut # (Auto) 13.8 H Lymph # (Auto) 1.0 L [place] # (Auto) 1.1 H Urine pH 6.0 Ur Specific [place] 1.005 Urine Protein 100 Urine Blood Large Urine Leukocytes Large H Urine RBC 10-15 Urine WBC Tntc Laboratory Tests 05/11/17 05/11/17 05/11/17 10:55 10:55 10:55 Total Counted 100 Segmented Neutrophils 90 H Lymphocytes 7 L Monocytes 3 Platelet Estimate Increased Hypochromasia 1+ Microcytosis 1+ INR 1.3 PT Patient/Control Mix 13.7 Sodium 138 Potassium 4.2 Chloride 100 Carbon Dioxide 31 BUN 22 H BUN/Creatinine Ratio 31.00 H Magnesium 1.6 L Troponin I < 0.015 Albumin 2.1 L Globulin 4.8 H Albumin/Globulin Ratio 0.4 L - Diagnostic Findings Procedure: Chest x-ray: report reviewed by me (Limited chest x-ray. Progressive elevation of the right hemidiaphragm with prior median sternotomy. Atelectasis/ infiltration at the lung bases with underlying chronic scarring. ) Disposition Clinical Impression: Altered mental status, Acute anemia, UTI (urinary tract infection), Debility, unspecified, Contractures involving both knees Case discussed with: patient Disposition: Still a Patient Condition: Stable Time of Disposition: 12:02
--- NOTE | 2017-05-11 09:50 | EKG Report ---
Stationary ECG Study [facility] ER Test Date: 05/11/2017 9:47:56 AM Pat Name: JASSI MATTHEW Department: Room: Gender: M Stockroom Selector: : 1960 Requested by: Major Short Order Number: [id number] Reading MD: RON SAUL Intervals [place] Rate: 88 P: 23 IA: 112 QRS: 8 QRSD: 98 T: 217 QT: 321 QTc: 367 Interpretive Statements NORMAL SINUS RHYTHM BASELINE ARTIFACT Electronically Signed On 05-12-17 15:42:05 CDT by RON SAUL [email or web address]
--- NOTE | 2017-05-11 09:56 | XRay Report ---
Portable chest Date: 05/11/2017 Clinical history: Alteration of consciousness Comparison: 02/11/2017 Technique: Portable AP sitting chest Findings: The heart is normal in size with prior median sternotomy. Chronic scarring in the lungs with progressive elevation of the right hemidiaphragm. Atelectasis/infiltration at the lung bases. Prior anterior cervical fusion with degenerative changes. Impression: Limited chest x-ray. Progressive elevation of the right hemidiaphragm with prior median sternotomy. Atelectasis/infiltration at the lung bases with underlying chronic scarring. PROCEDURE INTERPRETED AT [facility] DEPARTMENT OF RADIOLOGY Final Report Signed by: Dr. Soledad Menard
[2017-05-11] MEDS ORDERED: INSULIN REGULAR 100 UNIT/ML ONE (10:07)
[2017-05-11 10:29] LABS: Apearance,Urine Cloudy (Clear); Urine Color Yellow (Yellow); Urine Specific Gravity 1.005 (1.001-1.035)
[2017-05-11 10:30] LABS: Bilirubin,Urine Negative (Negative); Blood, Urine Large mg/dL (Negative); Glucose,Urine (UA) Negative (Negative); Ketones,Urine Negative (Negative); Nitrite,Urine Negative (Negative); Protein,Urine 100 MG/DL; Urine Urobilinogen 0.2 EU/DL (0.2-1.0); WBC,Urine TNTC /HPF (0-6)
[2017-05-11 10:31] LABS: Bacteria,Urine Occasional /HPF (Few); Mucus,Urine Few /LPF (Occasional)
[2017-05-11 10:59] LABS: Basophils % 0.1 % (0.0-0.8); Eosinophils # 0.2 10*3/uL (0.0-0.87); Eosinophils % 1.4 % (0.00-10.9); Hematocrit 21.5 VOL% (42.0-52.0); Immature Granulocytes % 0.4 %; Immature Granulocytes Absolute 0.06 #; Lymphocytes % 6.4 % (21.2-54.2); Mean Corpuscular HGB Conc 30.7 GM/DL (32-36); Mean Corpuscular Hemoglobin 26 PG (27-34); Mean Platelet Volume 9.4 FL (9.6-12.0); Monocytes # 1.1 10*3/uL (0.11-0.8); Monocytes % 6.7 % (1.7-12.7); Neutrophils # 13.8 10*3/uL (1.4-7.4); Platelet Count 406 T/CUMM (130-400); Red Blood Count 2.56 MC/CUMM (3.8-5.5); White Blood Count 16.2 T/CUMM (4-12)
[2017-05-11 11:05] LABS: Hemoglobin 6.6 GM/DL (14.0-18.0)
[2017-05-11 11:14] LABS: INR 1.3; PT Patient Result 13.7 SECS
[2017-05-11 11:19] LABS: Ammonia 22 UMOL/L (11-32)
[2017-05-11 11:23] LABS: Lactic Acid 0.6 MMOL/L (0.4-2.0)
[2017-05-11 11:25] LABS: Hypochromasia 1+; Lymphocytes 7 % (20-55); Segmented Neutrophils 90 % (50-85); Total Cells Counted 100
[2017-05-11 11:26] LABS: Microcytosis 1+
[2017-05-11 11:27] LABS: Ovalocytes Slight
[2017-05-11 11:28] LABS: Platelet Estimate Increased
[2017-05-11 11:33] LABS: Alanine Aminotransferase 19 U/L (16-61); Albumin 2.1 G/DL (3.4-5.0); Alkaline Phosphatase 98 U/L (45-117); Aspartate Amino Transferase 32 U/L (0-37); Bilirubin,Total < 0.39 MG/DL (0.2-1.0); Blood Urea Nitrogen 22 MG/DL (7-18); Calcium 9.4 MG/DL (8.5-10.1); Glucose 90 MG/DL (74-106); Magnesium 1.6 MG/DL (1.8-2.4); Osmolality,Calculated 277.7 MOS/KG (273-304); Potassium 4.2 MMOL/L (3.5-5.1); Sodium 138 MMOL/L (136-145); Total Protein 6.9 G/DL (6.4-8.3); Troponin I Only < 0.015 NG/ML (0.00-0.045)
[2017-05-11] MEDS ORDERED: MAGNESIUM SULF RIDER 2 GM in PREMIX 1 EACH IV STA (11:56)
[2017-05-11] MEDS ORDERED: MAGNESIUM SULF RIDER 50 ML IV ONE (12:02)
[2017-05-11] MEDS ORDERED: cefTRIAXone 1,000 MG VIAL ONE (12:02)
[2017-05-11] MEDS ORDERED: DOCUSATE SODIUM 100 MG CAPSULE PO PRN (12:50)
[2017-05-11] MEDS ORDERED: ONDANSETRON 4 MG/2 ML VIAL IV PRN (12:50)
[2017-05-11] MEDS ORDERED: ACETAMINOPHEN 325 MG TABLET PO PRN (12:50)
[2017-05-11] MEDS ORDERED: SODIUM CHLORIDE 0.9% 250 ML IV PRN (12:56)
[2017-05-11] MEDS ORDERED: ONDANSETRON 4 MG/2 ML VIAL IV STA (13:51)
[2017-05-11] MEDS ORDERED: MORPHINE 2 MG/1 ML SYRINGE IV STA (13:51)
[2017-05-11] MEDS ORDERED: MORPHINE 2 MG/1 ML SYRINGE ONE (13:53)
[2017-05-11] MEDS ORDERED: ONDANSETRON 4 MG/2 ML VIAL ONE (13:53)
--- NOTE | 2017-05-11 13:59 | Hospitalist History & Physical ---
Assessment and Plan (1) Anemia Status: Chronic Assessment and plan: Admit to monitored bed. Consult GI. Serial h&h. Order PRBCs. Protonix IV BID. IVF. Current Visit: No (2) UTI (urinary tract infection) Status: Acute Assessment and plan: IV antibiotics. Urine culture pending. IVFs Current Visit: Yes (3) Contractures involving both knees Status: Acute Current Visit: Yes (4) Debility, unspecified Status: Acute Current Visit: Yes (5) Decubitus ulcer Status: Acute Assessment and plan: Consult wound care. Current Visit: No History of Present Illness Chief complaint: hem positive stool History of present illness: Mr. Montana is a 56 year old black male with a history of reflux, htn, dm, NH ( stents and CABG), COPD, and neurogenic bladder that presented to the ED via EMS [facility] for further evaluation of altered mental status with an onset of last night. Pt. is alert and oriented on examination in the ED. He stated he [facility] and became to hallucinate last night. Pt. reports that the nurse applied a Fetanyl patch, gave him a [place] 10, and he received a boost. Pt. states that he feels much better now. Pt. denies chest pain, shortness of breath, hallucinations, n/v/d, abdominal pain or any other complaints in the ED at this time. On arrival to the ED, pt was noted to have a WBC of 16.2, h&h of 6.6 and 21.5 and an UTI. Pt's case has been discussed with Dr. Craft and the patient will be admitted. Pt has been asked about CODE STATUS and wishes to be a FULL CODE at this time. Pt's home meds have been reviewed but no reconciled at this time. Home Medications Medication Instructions Recorded Confirmed Type Albuterol/Ipratropium Neb [Duoneb] 3 ml RESP TX RT Q6H PRN 02/11/17 02/11/17 History Bisacodyl Supp [Dulcolax Supp] 10 mg RECTAL DAILY PRN 02/11/17 02/11/17 History Cyclobenzaprine HCl 5 mg PO TID PRN 02/11/17 02/11/17 History Insulin Aspart [NovoLOG] 0 unit SUBCUT ACHS PRN 02/11/17 02/11/17 History Lisinopril 20 mg PO DAILY 02/11/17 02/11/17 History Magnesium Oxide 400 mg PO BID 02/11/17 02/11/17 History Polyvinyl Alcohol 1.4% Oph [place] 1 drop BOTH EYES QID PRN 02/11/17 02/11/17 History [Artificial Tears Oph Soln] Ranitidine Tab [Zantac Tab] 150 mg PO DAILY PRN 02/11/17 02/11/17 History Simvastatin [Zocor] 20 mg PO BEDTIME 02/11/17 02/11/17 History Apixaban [Eliquis] 5 mg PO BID tablet 02/15/17 Rx Aspirin EC Tab 81 mg PO DAILY tablet 02/15/17 Rx Citalopram [CeleXA] 10 mg PO DAILY tablet 02/15/17 Rx Collagenase Oint [Santyl Oint] 1 applic TOP DAILY applic 02/15/17 Rx Cyclobenzaprine [Flexeril] 5 mg PO TID PRN tablet 02/15/17 Rx Dextrose 50% [D50] 25 gm IV PRN PRN vial 02/15/17 Rx Glucagon 1 mg IM PRN PRN vial 02/15/17 Rx HYDROcodone/ACETAMIN 10-325 [[place] 1 tablet PO Q4H PRN tablet 02/15/17 Rx 10-325] Insulin Lispro [HumaLOG] See Protocol SUBCUT Q6HR unit 02/15/17 Rx Skin Healing Oint (Aquaphor) 1 applic TOP PRN PRN applic 02/15/17 Rx [Aquaphor] Sodium Hypochlorite 0.25% Irr 1 applic TOP DAILY applic 02/15/17 Rx [Dakins 1/2 Strength 0.25% Soln] fentaNYL 25 MCG/HR PATCH 1 patch TRANSDERM Q3DAY patch 02/15/17 Rx [Duragesic 25 Patch] Allergies Allergy/AdvReac Type Severity Reaction Status Date / Time No Known Allergies Allergy Verified 11/26/16 10:10 Medical,Surgical,& Family Hx - Medical History Cardio: History of: [place] Renal: History of: Renal Problems (neurgenic bladder) Musculoskeletal: History of: Musculoskeletal Problems - Surgical History Neurologic Surgeries: Surgical HX of: Neurologic Surgery Orthopedic Surgeries: Surgical HX of;: Spinal Surgery - Family History Family History: Reports;: Family Diabetes, Family Heart Disease - Social History Smoking Status: Never smoker Frequency of Alcohol Use: None Type of Drug Use: None Marital Status: Single Lives With:: trestleman Functional capacity: bed bound 12 point system: reviewed and no additional remarkable complaints except as stated - Constitutional Constitutional: Absent: chills, fever(s), night sweats - EENT Eyes: Present: requires corrective lense. Absent: blurry vision Ears: Absent: decreased hearing Nose, mouth and throat: Absent: headache(s) - Cardiovascular Cardiovascular: Absent: chest pain at rest, dyspnea, edema - Respiratory Respiratory: Absent: cough, snoring - Gastrointestinal Gastrointestinal: Present: diarrhea. Absent: nausea, vomiting - Genitourinary Genitourinary: Absent: difficulty urinating - Musculoskeletal Musculoskeletal: Present: limited range of motion - Neurological Neurological: Absent: headache(s) - Psychiatric Psychiatric: Absent: anxiety - Endocrine Endocrine: Absent: fatigue - Hematologic/Lymphatic Hematologic/Lymphatic: Present: easy bleeding Exam - Constitutional Vitals: Period Temp Pulse Resp BP Sys/Agustin Pulse Ox Last 24 Hr 98.5 F-98.5 F 82-82 -17 100-100/61-61 98-99 General appearance: no acute distress, under weight - Head Head exam: Present: normal inspection, normocephalic - Eye Eye exam: Present: EOMI. Absent: scleral icterus Pupils: Present: RHINA - Neck Neck exam: Present: normal inspection - Respiratory Respiratory exam: Present: clear to auscultation bilaterally. Absent: wheezes - Cardiovascular Cardiovascular exam: Present: regular rate and rhythm - GI/Abdominal GI/Abdominal exam: Present: normal bowel sounds, soft. Absent: tenderness - Extremities Exam Extremities exam: Absent: full ROM, edema - Neurological Exam Neurological exam: Present: alert, oriented X3. Absent: altered - Psychiatric Psychiatric exam: Present: normal affect, normal mood - Skin Skin exam: Present: normal color, warm, dry Results - Labs CBC & BMP: 05/11/17 10:55 05/11/17 10:55 Lab Results: I have reviewed the past 24 hour labs
--- NOTE | 2017-05-11 14:38 | Gastrointestinal Consult Note ---
Assessment and Plan (1) Anemia Status: Chronic Assessment and plan: 05/11-Findings of anemia with HH 6/21 w/o reports of overt bleeding. Hx according to pt of blood transfusion in the past and anemia. Check stool for occult blood, serial HH. Protonix BID. Plan and addendum to follow by Dr Van. Current Visit: No History of Present Illness Chief complaint: Heme positive stool, anemia History of present illness: Mr. Montana is a 56 year old male who was admitted to the hospital with onset of heme positive stools and changes in LOC. Pt is a fair historian with limited information available therefore information is also obtained from chart reveiw. Patient has a prior history of reflux, hypertension, diabetes, COPD and neurogenic bladder. He also has a history of quadriplegia and multiple contractures. He is also noted to have Fentanyl as well as [place] for chronic pain. Pt is also noted to have a colostomy, and feeding tube, from what he states was due to "decubitus ulcers" and having "bones removed". He Pt is a resident at [facility] where he was reported to have a changed in mental status on last night. Pt is oriented at this time to time and place. He states he has not been feeling very well and complaining of feeling "hot" all over. He is noted to have a recent history as well of decubitus ulcers with recent inpatient stay and ongoing wound care for this. On admission, pt was found to have HH of 621 without any overt bleeding reports from nursing staff. Pt states that he has had blood transfusions in the past but cannot recall why. Unable to locate any prior endoscopy in our facility database at this time. He is also noted to be on Eliquis with unknown last dose[place] [address] however afebrile on admission. He is to be transfused 2 units of PRBC today. Home Medications Medication Instructions Recorded Confirmed Type Albuterol/Ipratropium Neb [Duoneb] 3 ml RESP TX RT Q6H PRN 02/11/17 02/11/17 History Bisacodyl Supp [Dulcolax Supp] 10 mg RECTAL DAILY PRN 02/11/17 02/11/17 History Cyclobenzaprine HCl 5 mg PO TID PRN 02/11/17 02/11/17 History Insulin Aspart [NovoLOG] 0 unit SUBCUT ACHS PRN 02/11/17 02/11/17 History Lisinopril 20 mg PO DAILY 02/11/17 02/11/17 History Magnesium Oxide 400 mg PO BID 02/11/17 02/11/17 History Polyvinyl Alcohol 1.4% Oph [place] 1 drop BOTH EYES QID PRN 02/11/17 02/11/17 History [Artificial Tears Oph Soln] Ranitidine Tab [Zantac Tab] 150 mg PO DAILY PRN 02/11/17 02/11/17 History Simvastatin [Zocor] 20 mg PO BEDTIME 02/11/17 02/11/17 History Apixaban [Eliquis] 5 mg PO BID tablet 02/15/17 Rx Aspirin EC Tab 81 mg PO DAILY tablet 02/15/17 Rx Citalopram [CeleXA] 10 mg PO DAILY tablet 02/15/17 Rx Collagenase Oint [Santyl Oint] 1 applic TOP DAILY applic 02/15/17 Rx Cyclobenzaprine [Flexeril] 5 mg PO TID PRN tablet 02/15/17 Rx Dextrose 50% [D50] 25 gm IV PRN PRN vial 02/15/17 Rx Glucagon 1 mg IM PRN PRN vial 02/15/17 Rx HYDROcodone/ACETAMIN 10-325 [[place] 1 tablet PO Q4H PRN tablet 02/15/17 Rx 10-325] Insulin Lispro [HumaLOG] See Protocol SUBCUT Q6HR unit 02/15/17 Rx Skin Healing Oint (Aquaphor) 1 applic TOP PRN PRN applic 02/15/17 Rx [Aquaphor] Sodium Hypochlorite 0.25% Irr 1 applic TOP DAILY applic 02/15/17 Rx [Dakins 1/2 Strength 0.25% Soln] fentaNYL 25 MCG/HR PATCH 1 patch TRANSDERM Q3DAY patch 02/15/17 Rx [Duragesic 25 Patch] Allergies Allergy/AdvReac Type Severity Reaction Status Date / Time No Known Allergies Allergy Verified 11/26/16 10:10 Medical,Surgical,& Family Hx - Medical History Cardio: History of: Hypertension, [place] Renal: History of: Renal Problems (neurgenic bladder) Genitourinary: History of: Recurring Urinary Tract Infections Musculoskeletal: History of: Musculoskeletal Problems Hematology: History of: Anemia - Surgical History Neurologic Surgeries: Surgical HX of: Neurologic Surgery Orthopedic Surgeries: Surgical HX of;: Spinal Surgery - Social History Smoking Status: Never smoker Frequency of Alcohol Use: None Type of Drug Use: None 12 point system: reviewed and no additional remarkable complaints except as stated - Constitutional Constitutional: Present: as per HPI - EENT Eyes: Present: as per HPI Ears: Present: as per HPI Nose, mouth and throat: Present: as per HPI - Cardiovascular Cardiovascular: Present: as per HPI - Respiratory Respiratory: Present: as per HPI - Gastrointestinal Gastrointestinal: Present: as per HPI - Genitourinary Genitourinary: Present: as per HPI - Musculoskeletal Musculoskeletal: Present: as per HPI - Neurological Neurological: Present: as per HPI - Psychiatric Psychiatric: Present: as per HPI - Endocrine Endocrine: Present: as per HPI - Hematologic/Lymphatic Hematologic/Lymphatic: Present: as per HPI Exam - Constitutional Vitals: Period Temp Pulse Resp BP Sys/Agustin Pulse Ox Last 24 Hr 98.5 F-98.5 F 79-82 17-81 91-100/59-61 98-100 General appearance: normal weight, no acute distress - Head Head exam: Present: normal inspection, normocephalic - Eye Eye exam: Present: other (lids and conjuncitva unremarkable). Absent: scleral icterus - ENT ENT exam: Present: normal exam, normal oropharynx - Neck Neck exam: Present: normal inspection - Respiratory Respiratory exam: Present: clear to auscultation bilaterally. Absent: rales, rhonchi, wheezes - Cardiovascular Cardiovascular exam: Present: regular rate and rhythm. Absent: diastolic murmur , JVD, systolic murmur - GI/Abdominal GI/Abdominal exam: Present: normal bowel sounds, soft. Absent: ascites, distended, mass, organomegaly, tenderness - Extremities Exam Extremities exam: Present: normal inspection, full ROM - Back Exam Back exam: Present: normal inspection - Neurological Exam Neurological exam: Present: alert, oriented X3 - Psychiatric Psychiatric exam: Present: normal affect, normal mood - Skin Skin exam: Present: normal color, warm, dry Results - Labs CBC & BMP: 05/11/17 10:55 05/11/17 10:55 Lab Results: I have reviewed the past 24 hour labs
[2017-05-11] MEDS: SODIUM CHLORIDE 0.9% 1,000 ML IV SCH (15:54)
[2017-05-11] MEDS ORDERED: ALBUTEROL/IPRATROPIUM 3 ML NEB RESP TX PRN (17:40)
[2017-05-11] MEDS: PANTOPRAZOLE 40 MG VIAL IV SCH (20:42)
[2017-05-11] MEDS: DICLOFENAC 1% GEL 100 GM TUBE TOP SCH (20:43)
[2017-05-11] MEDS: BACLOFEN 20 MG TABLET PO SCH (20:43)
[2017-05-11] MEDS: VANCOMYCIN INJ 1,000 MG in SODIUM CHLORIDE 0.9% 250 ML IV SCH (20:43)
[2017-05-11] MEDS: SIMVASTATIN 20 MG TABLET PO SCH (20:43)
[2017-05-11] MEDS: MIDODRINE 5 MG TABLET PO SCH (20:43)
[2017-05-11] MEDS: busPIRone 10 MG TABLET PO SCH (20:54)
[2017-05-11] MEDS: PIPERACILLIN/TAZOBACTAM 3,375 MG in SODIUM CHLORIDE 0.9% 100 ML IV SCH (23:03)
[2017-05-12] MEDS: PIPERACILLIN/TAZOBACTAM 3,375 MG in SODIUM CHLORIDE 0.9% 100 ML IV SCH ×3 (02:58→17:38)
[2017-05-12 03:01] LABS: Basophils % 0.2 % (0.0-0.8); Eosinophils # 0.2 10*3/uL (0.0-0.87); Eosinophils % 1.8 % (0.00-10.9); Hematocrit 25.3 VOL% (42.0-52.0); Hemoglobin 8.1 GM/DL (14.0-18.0); Immature Granulocytes % 0.6 %; Immature Granulocytes Absolute 0.08 #; Lymphocytes # 1.2 10*3/uL (1.4-4.0); Lymphocytes % 9.3 % (21.2-54.2); Mean Corpuscular Hemoglobin 27 PG (27-34); Mean Corpuscular Volume 84.6 FL (87-102); Mean Platelet Volume 9.7 FL (9.6-12.0); Monocytes # 1.2 10*3/uL (0.11-0.8); Monocytes % 9.4 % (1.7-12.7); Neutrophils % 78.7 % (38.7-73.9); Platelet Count 384 T/CUMM (130-400); Red Blood Count 2.99 MC/CUMM (3.8-5.5); Red Cell Distribution Width 16.5 % (9.3-17.3); White Blood Count 12.7 T/CUMM (4-12)
[2017-05-12 03:04] LABS: Hematocrit 25.2 VOL% (42.0-52.0); Hemoglobin 8.2 GM/DL (14.0-18.0)
[2017-05-12 03:20] LABS: INR 1.2; PT Patient Result 12.7 SECS
[2017-05-12 03:41] LABS: Calcium 9.4 MG/DL (8.5-10.1); Magnesium 1.8 MG/DL (1.8-2.4); Osmolality,Calculated 271.8 MOS/KG (273-304); Potassium 3.8 MMOL/L (3.5-5.1); Risk Ratio 2.6; Thyroid Stimulating Hormone 1.39 uIU/ml (0.358-3.74); VLDL CHOLESTEROL 13.6 MG/DL
[2017-05-12 03:44] LABS: Eosinophils 2 % (0-10); Lymphocytes 11 % (20-55); Platelet Estimate Normal; Segmented Neutrophils 76 % (50-85); Total Cells Counted 100
[2017-05-12] MEDS: VANCOMYCIN INJ 1,000 MG in SODIUM CHLORIDE 0.9% 250 ML IV SCH ×2 (05:07→23:27)
[2017-05-12] MEDS: SODIUM CHLORIDE 0.9% 1,000 ML IV SCH ×3 (06:27→23:32)
[2017-05-12] MEDS ORDERED: COLLAGENASE OINT 30 GM TUBE TOP SCH (09:00)
[2017-05-12] MEDS ORDERED: SODIUM HYPOCHLORITE 0.5% TOP SCH (09:00)
[2017-05-12] MEDS ORDERED: PANTOPRAZOLE 40 MG TABLET PO SCH (09:00)
[2017-05-12] MEDS ORDERED: CHLORHEXIDINE 4% SOLN 118 ML BOTTLE TOP ONE (09:31)
[2017-05-12] MEDS ORDERED: SKIN HEALING OINT (AQUAPHOR) 50 GM TUBE TOP PRN (09:31)
--- NOTE | 2017-05-12 09:36 | General Surgery Progress Note ---
Assessment and Plan - Time spent with patient Time spent with patient: Greater than 30 minutes (1) Quadriplegia Status: Chronic Assessment and plan: Impression: Quadriplegia long-term with lower extremity contractures Current Visit: No (2) Sacral decubitus ulcer, stage IV Status: Acute Assessment and plan: Impression: Sacral decubitus ulcer stage IV with a good granulating base. Plan: Local wound care with irrigations and dressings daily Current Visit: Yes (3) Decubitus ulcer of both feet Status: Acute Current Visit: Yes (4) Decubitus ulcer of both feet, stage 4 Status: Acute Assessment and plan: Impression: Decubitus ulcers of both feet stage IV primarily first metatarsal heads of the right and the lateral metatarsal of the left Plan: Local wound care to try to clean him up and get him protected and padded No heel ulcers present Current Visit: Yes (5) Urinary tract infection Status: Chronic Assessment and plan: Impression: Urinary tract infection Plan antibiotics Current Visit: No Qualifiers: Urinary tract infection type: catheter-associated UTI (6) Contractures involving both knees Status: Acute Assessment and plan: Impression: Contractures of the knees and hips associated to his quadriplegia. Plan: Protective care to try to prevent further breakdown Current Visit: Yes Subjective Patient reports: Present: no new complaints, tolerating a regular diet, afebrile Exam - Constitutional Vitals: Period Temp Pulse Resp BP Sys/Agustin Pulse Ox Last 24 Hr 97.1 F-99.0 F 71-88 16-81 80-116/45-80 97-100 General appearance: mild distress - Head Head exam: Present: normal inspection - ENT ENT exam: Present: normal exam - Neck Neck exam: Present: normal inspection - Respiratory Respiratory exam: Present: rales, rhonchi - Cardiovascular Cardiovascular exam: Present: RRR - GI/Abdominal GI/Abdominal exam: Present: normal bowel sounds, soft. Absent: tenderness - Extremities Exam Extremities exam: Present: other (Ulcers of the right foot first and fifth metatarsal heads with the joint exposed on the fifth metatarsal head. No heel ulcers present. Left foot with ulcer lateral aspect of the foot. No breakdown at the metatarsal heads although there is some skin changes present there. No heel ulcers on the left. Marked contracture of the knees and hips on this lower extremity.). Absent: edema - Back Exam Back exam: Present: other (Sacral ulcer with a large granulating bed stage IV with some loose necrotic tendinous material present.) - Neurological Exam Neurological exam: Present: alert, oriented X3, CN II-XII intact, other ( Quadriplegic) - Skin Skin exam: Present: normal color, warm, dry Results - Labs CBC & BMP: 05/12/17 02:21 05/12/17 02:21 Lab Results: I have reviewed the past 24 hour labs
[2017-05-12] MEDS ORDERED: SODIUM HYPOCHLORITE 0.25% IRRIG 473 ML BOTTLE TOP SCH (10:00)
[2017-05-12] MEDS: CHOLECALCIFEROL 1,000 UNIT TABLET PO SCH (10:14)
[2017-05-12] MEDS: CITALOPRAM 20 MG TABLET PO SCH (10:15)
[2017-05-12] MEDS: MULTIVITAMIN (CENTRUM) TABLET PO SCH (10:15)
[2017-05-12] MEDS: BACLOFEN 20 MG TABLET PO SCH ×4 (10:15→21:06)
[2017-05-12] MEDS: MAGNESIUM OXIDE 400 MG TABLET PO SCH (10:16)
[2017-05-12] MEDS: busPIRone 10 MG TABLET PO SCH ×2 (10:16→21:04)
[2017-05-12] MEDS: PANTOPRAZOLE 40 MG VIAL IV SCH ×2 (10:16→21:06)
[2017-05-12] MEDS: MIDODRINE 5 MG TABLET PO SCH ×2 (10:16→21:07)
[2017-05-12] MEDS: ASCORBIC ACID 500 MG TABLET PO SCH (10:16)
[2017-05-12] MEDS: ZINC SULFATE 220 MG CAPSULE PO SCH (10:23)
--- NOTE | 2017-05-12 10:48 | Gastrointestinal Progress Note ---
Assessment and Plan (1) Anemia Status: Chronic Assessment and plan: 05/12-H&H improved following transfusion. No overt bleeding reported. Stools for occult blood pending. Continue to monitor H&H. Advance to full liquid diet. Plan an addendum to follow Dr. Van. 05/11-Findings of anemia with HH 03/01 w/o reports of overt bleeding. Hx according to pt of blood transfusion in the past and anemia. Check stool for occult blood, serial HH. Protonix BID. Plan and addendum to follow by Dr Van. Current Visit: No Gastroenterology - PN: Subj Interval history: CC: Anemia Patient is seen awake and alert lying in bed. States he is feeling somewhat better today. He denies any overt bleeding as well as staff at bedside denies this. He is noted to have gram-positive rods in his urine culture as well as gram-positive cocci in his pulmonary blood cultures. He is MRSA negative. WBCs are trending down at 12,000. H&H is improved at 05/05 following 2 units of packed red blood cells on yesterday. Ferritin level is noted to be elevated at 551. He denies any abdominal pain, nausea or vomiting. Patient is requesting to increase his diet. He does have a PEG tube however states he has not used this since November of this year and is requesting now to have this removed if possible. Stool for occult blood is still pending he states that he is taking everything in by mouth now. Abdomen soft, nontender. ROS: Denies shortness of breath or chest pain Exam (Progress Note) - Constitutional Vitals: Period Temp Pulse Resp BP Sys/Agustin Pulse Ox Last 24 Hr 97.1 F-99.0 F 71-88 16-81 80-116/45-80 97-100 General appearance: normal weight, no acute distress - Head Head exam: Present: normal inspection, normocephalic - Eye Eye exam: Present: other (Lids and identified unremarkable). Absent: scleral icterus - ENT ENT exam: Present: normal exam, normal oropharynx - Neck Neck exam: Present: normal inspection - Respiratory Respiratory exam: Present: clear to auscultation bilaterally. Absent: rales, rhonchi, wheezes - Cardiovascular Cardiovascular exam: Present: regular rate and rhythm. Absent: diastolic murmur , JVD, systolic murmur - GI/Abdominal GI/Abdominal exam: Present: normal bowel sounds, soft. Absent: ascites, distended, mass, organomegaly, tenderness - Extremities Exam Extremities exam: Present: normal inspection, full ROM - Back Exam Back exam: Present: normal inspection - Neurological Exam Neurological exam: Present: alert, oriented X3 - Psychiatric Psychiatric exam: Present: normal affect, normal mood - Skin Skin exam: Present: normal color, warm, dry Results - Labs CBC & BMP: 05/12/17 02:21 05/12/17 02:21 Lab Results: I have reviewed the past 24 hour labs
--- NOTE | 2017-05-12 14:49 | Hospitalist Progress Note ---
Assessment and Plan (1) Urinary tract infection Status: Chronic Assessment and plan: Continue current antibiotics. Current Visit: No Qualifiers: Urinary tract infection type: catheter-associated UTI (2) Anemia Status: Chronic Assessment and plan: Hematocrit is stable. We will continue to check tomorrow Current Visit: No Qualifiers: Anemia type: iron deficiency Iron deficiency anemia type: chronic blood loss Qualified Code(s): D50.0 - Iron deficiency anemia secondary to blood loss (chronic) (3) Debility, unspecified Status: Acute Assessment and plan: Continue nutritional support while here. Is difficult to do physical therapy on this patient because he has been immobile for a long time and is contracted Current Visit: Yes (4) Sacral decubitus ulcer, stage IV Status: Acute Current Visit: Yes (5) Decubitus ulcer of both feet, stage 4 Status: Acute Assessment and plan: Continue wound care Current Visit: Yes Hospitalist: Subjective Interval history: Patient has been seen on my assumption of his care; interviewed and examined and chart has been reviewed. The gentleman is quadriplegic and bed multiple soles on his feet. He is in the hospital with infected decubiti urinary tract infection. It appears he did have an element of failure to thrive at home. He has a history of GI bleed for this reason his oral anticoagulant has been withheld. I am informed hot knife foxing cutter to make a decision when to resume it. On looking at comparative Dr. collins find that hematocrit is stable however final decision from gastroenterology is not on the chart yet as to whether there will be a procedure or not. For this reason I would not resume the direct acting oral anticoagulant. Exam - Constitutional Vitals: Period Temp Pulse Resp BP Sys/Agustin Pulse Ox Last 24 Hr 97.1 F-99.0 F 71-88 16-22 80-116/45-80 95-100 General appearance: under weight, other (Cachectic and contractured gentleman with quadriplegia very stiff limbs despite use of baclofen) - Head Head exam: Present: normocephalic, atraumatic - Eye Eye exam: Present: EOMI Pupils: Present: RHINA - Respiratory Respiratory exam: Present: clear to auscultation bilaterally - Cardiovascular Cardiovascular exam: Present: regular rate and rhythm - GI/Abdominal GI/Abdominal exam: Present: normal bowel sounds, soft - Extremities Exam Extremities exam: Present: other (Contractured limbs a lot of sores on the feet obviously pressure soles) - Neurological Exam Neurological exam: Present: alert, oriented X3, CN II-XII intact - Psychiatric Psychiatric exam: Present: normal affect, normal mood - Skin Skin exam: Present: other (Skin also has a prominence is in the malleoli and the first MTP) Results - Labs CBC & BMP: 05/12/17 02:21 05/12/17 02:21 Lab Results: I have reviewed the past 24 hour labs
[2017-05-12] MEDS: DICLOFENAC 1% GEL 100 GM TUBE TOP SCH ×2 (16:45→21:07)
[2017-05-12] MEDS: SIMVASTATIN 20 MG TABLET PO SCH (21:06)
[2017-05-13] MEDS: PIPERACILLIN/TAZOBACTAM 3,375 MG in SODIUM CHLORIDE 0.9% 100 ML IV SCH ×2 (00:48→09:17)
[2017-05-13 04:36] LABS: Basophils % 0.2 % (0.0-0.8); Eosinophils # 0.1 10*3/uL (0.0-0.87); Eosinophils % 1.2 % (0.00-10.9); Hematocrit 25.9 VOL% (42.0-52.0); Hemoglobin 8.2 GM/DL (14.0-18.0); Immature Granulocytes % 0.4 %; Immature Granulocytes Absolute 0.05 #; Lymphocytes # 1.2 10*3/uL (1.4-4.0); Lymphocytes % 10.6 % (21.2-54.2); Mean Corpuscular HGB Conc 31.7 GM/DL (32-36); Mean Corpuscular Hemoglobin 27 PG (27-34); Mean Corpuscular Volume 85.8 FL (87-102); Mean Platelet Volume 10.1 FL (9.6-12.0); Monocytes # 1.1 10*3/uL (0.11-0.8); Monocytes % 9.1 % (1.7-12.7); Neutrophils # 9.2 10*3/uL (1.4-7.4); Neutrophils % 78.5 % (38.7-73.9); Platelet Count 369 T/CUMM (130-400); Red Blood Count 3.02 MC/CUMM (3.8-5.5); Red Cell Distribution Width 16.7 % (9.3-17.3); White Blood Count 11.7 T/CUMM (4-12)
[2017-05-13 05:06] LABS: Magnesium 1.5 MG/DL (1.8-2.4); Osmolality,Calculated 272.7 MOS/KG (273-304); Potassium 3.5 MMOL/L (3.5-5.1)
[2017-05-13 05:14] LABS: Hypochromasia 1+; Ovalocytes Few; Platelet Estimate Normal
[2017-05-13 05:15] LABS: INR 1.2; PT Patient Result 12.4 SECS
[2017-05-13] MEDS: VANCOMYCIN INJ 1,000 MG in SODIUM CHLORIDE 0.9% 250 ML IV SCH (05:17)
[2017-05-13] MEDS: SODIUM CHLORIDE 0.9% 1,000 ML IV SCH (05:19)
[2017-05-13] MEDS: busPIRone 10 MG TABLET PO SCH (08:47)
[2017-05-13] MEDS: ZINC SULFATE 220 MG CAPSULE PO SCH (08:47)
[2017-05-13] MEDS: BACLOFEN 20 MG TABLET PO SCH (08:47)
[2017-05-13] MEDS: MULTIVITAMIN (CENTRUM) TABLET PO SCH (08:47)
[2017-05-13] MEDS: CHOLECALCIFEROL 1,000 UNIT TABLET PO SCH (08:47)
[2017-05-13] MEDS: CITALOPRAM 20 MG TABLET PO SCH (08:48)
[2017-05-13] MEDS: MIDODRINE 5 MG TABLET PO SCH (08:48)
[2017-05-13] MEDS: MAGNESIUM OXIDE 400 MG TABLET PO SCH (08:48)
[2017-05-13] MEDS ORDERED: CYANOCOBALAMIN PO SCH (09:00)
[2017-05-13] MEDS ORDERED: FOLIC AC PO SCH (09:00)
[2017-05-13] MEDS ORDERED: VIT B6 PO SCH (09:00)
[2017-05-13] MEDS: PANTOPRAZOLE 40 MG VIAL IV SCH (09:11)
--- NOTE | 2017-05-13 10:36 | Discharge Summary ---
<Farhat Suarez - Last Filed: 05/13/17 10:34> Diagnosis - Discharge Diagnosis (1) Urinary tract infection Status: Chronic (2) Anemia Status: Chronic (3) Debility, unspecified Status: Acute (4) Sacral decubitus ulcer, stage IV Status: Acute (5) Decubitus ulcer of both feet, stage 4 Status: Acute Specialty Discharge - Follow Up or Referrals Discharge Plan - Discharge Data Disposition: Disch/Xfer to [facility] Condition at Discharge: Stable Discharge Diet: diabetic diet, heart healthy Activity: other (Patient is a quadriplegic contracted in bed 03/04) Hygiene: other (Needs help with activities of daily living 03/04) Weight Bearing at Discharge: non-weight bearing Contact your physician if you experience:: fever over 101, Nausea/Vomiting, Shortness of breath, Bleeding - Discharge Medications Continue Magnesium Oxide 400 mg PO DAILY Albuterol/Ipratropium Neb [Duoneb] 3 ml RESP TX RT Q6H PRN PRN Reason: Shortness Of Breath/Wheezing Citalopram [CeleXA] 10 mg PO DAILY tablet Collagenase Oint [Santyl Oint] 1 applic TOP DAILY applic fentaNYL 25 MCG/HR PATCH [Duragesic 25 Patch] 1 patch TRANSDERM Q3DAY patch HYDROcodone/ACETAMIN 10-325 [[place] 10-325] 1 tablet PO Q4H PRN tablet PRN Reason: Pain Severe (8-10) Ziprasidone Cap [Geodon Cap] 40 mg PO BID Midodrine HCl 5 mg PO BID Ascorbic Acid [Vitamin C] 500 mg PO DAILY Sodium Hypochlorite 0.5% Irr [Dakins 0.5% Soln] 1 applic TOP DAILY Diclofenac 1% Gel [Voltaren 1% Gel] 1 applic TOP BID Pantoprazole Tab [Protonix Tab] 40 mg PO DAILY Cyanocobalamin/Folic AC/Vit B6 [Folbee Tablet] 1 each PO QOTHER DAY Baclofen Tab [Lioresal] 20 mg PO QID Multivitamin [One Daily] 1 each PO DAILY Buspirone HCl 10 mg PO BID Simvastatin [Zocor] 20 mg PO BEDTIME Apixaban [Eliquis] 5 mg PO BID tablet Zinc Sulfate 220 mg PO DAILY Cholecalciferol (Vitamin D3) [Vitamin D3] 2,000 unit PO DAILY - Follow Up or Referral - Forms/Instructions Instructions: Urinary Tract Infection in Men (DC) Exam - Constitutional Vitals: Period Temp Pulse Resp BP Sys/Agustin Pulse Ox Last 24 Hr 96.7 F-98.4 F 68-77 18-24 80-137/51-83 92-100 General appearance: under weight - Head Head exam: Present: normocephalic, atraumatic - Eye Eye exam: Present: EOMI Pupils: Present: RHINA - ENT ENT exam: Present: normal exam - Neck Neck exam: Present: normal inspection - Respiratory Respiratory exam: Present: clear to auscultation bilaterally - Cardiovascular Cardiovascular exam: Present: irregular rhythm - GI/Abdominal GI/Abdominal exam: Present: normal bowel sounds, soft, other (PEG in placed) - Extremities Exam Extremities exam: Present: other (Quadriplegic with contractures) - Neurological Exam Neurological exam: Present: alert, oriented X3, CN II-XII intact - Psychiatric Psychiatric exam: Present: normal affect, normal mood - Skin Skin exam: Present: other (Multiple pressure sores as described in the preceding note) Discharge Results Procedures and tests throughout hospitalization: Pending Orders 05/11/17 10:55 Blood Culture Stat 05/12/17 15:35 Occult Blood, Stool Routine Labs on day of discharge: Labs from last 24 hours 05/13/17 05/13/17 05/13/17 03:28 03:28 03:28 WBC 11.7 RBC 3.02 L Hgb 8.2 L Hct 25.9 L MCV 85.8 L MCH 27 MCHC 31.7 L RDW 16.7 Plt Count 369 MPV 10.1 Neut % (Auto) 78.5 H Lymph % (Auto) 10.6 L Dickinson % (Auto) 9.1 Eos % (Auto) 1.2 Baso % (Auto) 0.2 Neut # (Auto) 9.2 H Lymph # (Auto) 1.2 L Dickinson # (Auto) 1.1 H Eos # (Auto) 0.1 Baso # (Auto) 0.0 Immature Gran % 0.4 Nucleated RBC % 0.0 Immature Gran # 0.05 Nucleated RBCs # 0.00 Platelet Estimate Normal Immature Plt Fraction 0.0 Hypochromasia 1+ Ovalocytes Few INR PT Patient/Control Mix Sodium 138 Potassium 3.5 Chloride 100 Carbon Dioxide 30 Anion Gap 11.5 BUN 8 Creatinine 0.50 L GFR Calculation 153 BUN/Creatinine Ratio 16.00 Glucose 92 POC Glucose Calculated Osmolality 272.7 L Calcium 9.0 Magnesium 1.5 L Vancomycin Trough 15.8 05/13/17 05/12/17 03:28 19:56 WBC RBC Hgb Hct MCV MCH MCHC RDW Plt Count MPV Neut % (Auto) Lymph % (Auto) Dickinson % (Auto) Eos % (Auto) Baso % (Auto) Neut # (Auto) Lymph # (Auto) Dickinson # (Auto) Eos # (Auto) Baso # (Auto) Immature Gran % Nucleated RBC % Immature Gran # Nucleated RBCs # Platelet Estimate Immature Plt Fraction Hypochromasia Ovalocytes INR 1.2 PT Patient/Control Mix 12.4 Sodium Potassium Chloride Carbon Dioxide Anion Gap BUN Creatinine GFR Calculation BUN/Creatinine Ratio Glucose POC Glucose 115 H Calculated Osmolality Calcium Magnesium Vancomycin Trough Preliminary micro results at discharge 05/11/17 10:55 Blood Culture - Preliminary Blood Gram Positive Cocci 05/11/17 10:55 Blood Culture - Preliminary Blood Gram Positive Cocci DS: Provider Date of admission: 05/11/17 12:39 Primary care physician: . No PCP Attending physician on admission: Eliezer Craft MD Consults: 05/11/17 12:50 Consult to Physician [CONS] Routine Comment: Consulting Provider: Franky Van Person Notified: Larissa Date Notified: 05/11/17 Time Notified: 14:44 05/11/17 12:58 Consult to Wound Care - [place] [CONS] Routine Reason for Wound Care: Wound Care Management 05/11/17 15:10 Consult to Pastoral Services [CONS] Routine Comment: Pastoral Screen: Request [employer] Visit Pastoral Screen Source of Request: Patient 05/11/17 15:44 Consult to Pharmacy [CONS] Routine Reason for Pharmacy Consult: Dose/Manage Vancomycin 05/11/17 17:09 Consult to Physician [CONS] Routine Comment: multiple wounds on his feet Consulting Provider: Negro Sanchez Consulting Provider Notified: No When should Consulting Provider be notified: In am Person Notified: OFFICE CLOSED Date Notified: 05/12/17 Time Notified: 09:32 Consult Notification Comment: HE WAS NOTIFIED ON ROUNDS Discharging clinician: Farhat Suarez MD <Pantera Morales - Last Filed: 05/13/17 14:03> Diagnosis - Discharge Diagnosis (1) Anemia Status: Chronic (2) UTI (urinary tract infection) Status: Acute (3) Contractures involving both knees Status: Acute (4) Debility, unspecified Status: Acute (5) Decubitus ulcer Status: Acute
[2017-05-13] MEDS: ASCORBIC ACID 500 MG TABLET PO SCH (10:49)
[2017-05-13 11:28] VITALS: BP 113/67
[2017-05-14] MEDS ORDERED: fentaNYL 25 MCG/HR PATCH TRANSDERM SCH (09:00)
--- NOTE | 2017-05-22 13:39 | Physician Query Form ---
CLICK EDIT DOCUMENT TO SELECT QUERY ANSWER --> OK --> SIGN Marcella Estrella RN Clinical Sccm Administrator W) [phone] (f) [phone] [email or web address] PROVIDERS: Make your selection(s) from the choices in EACH section by typing an "x" and enter comments in the comment section. Please use your independent medical judgment in providing your response. This request does not imply that any particular answer is desired or expected. CLINICAL INDICATORS: (Providers should not edit this section) Based on documentation of "Acute UTI" "keith catheter that is cloudy and filled with debris" WBC of 16.2. All on admission. Urine culture grew proteus mirabilis. Treated with IV Rocephin and IV Zosyn. Based on the above, could you clarify the appropriate diagnosis, if significant , that supports the above abnormalities and additional evaluation, monitoring, and/or treatment rendered: ( ) UTI due to keith catheter. present on admission ( ) UTI NOT due to keith catheter. present on admission ( ) UTI due to keith catheter. NOT present on admission ( ) UTI due to other. (please specify) ( ) Other, please specify: ( ) Clinically unable to determine COMMENTS: PLEASE ALSO DOCUMENT RESPONSE IN PROGRESS NOTES AND/OR DISCHARGE SUMMARY Use of terms such as suspected, likely, or probable (associated with a specific diagnosis that is being evaluated, monitored, or treated as if it exists) are acceptable and can be restated in the discharge summary if not ruled out. MTDD
--- NOTE | 2017-05-29 08:02 | Physician Query Form ---
CLICK EDIT DOCUMENT TO SELECT QUERY ANSWER --> OK --> SIGN Marcella Estrella RN Clinical Chief Warden W) [phone] (f) [phone] [email or web address]: Make your selection(s) from the choices in EACH section by typing an "x" and enter comments in the comment section. Please use your independent medical judgment in providing your response. This request does not imply that any particular answer is desired or expected. CLINICAL INDICATORS: (Providers should not edit this section) Based on documentation of "Acute UTI" "keith catheter that is cloudy and filled with debris" WBC of 16.2. All on admission. Urine culture grew proteus mirabilis. Treated with IV Rocephin and IV Zosyn. Based on the above, could you clarify the appropriate diagnosis, if significant , that supports the above abnormalities and additional evaluation, monitoring, and/or treatment rendered: ( x) UTI due to keith catheter. present on admission ( ) UTI NOT due to keith catheter. present on admission ( ) UTI due to keith catheter. NOT present on admission ( ) UTI due to other. (please specify) ( ) Other, please specify: ( ) Clinically unable to determine COMMENTS: PLEASE ALSO DOCUMENT RESPONSE IN PROGRESS NOTES AND/OR DISCHARGE SUMMARY Use of terms such as suspected, likely, or probable (associated with a specific diagnosis that is being evaluated, monitored, or treated as if it exists) are acceptable and can be restated in the discharge summary if not ruled out. MTDD
== END 2017-05-13 13:08 | DRG 698 ==
LOC: EDBD → EDUNIT# → N.ED 08:40 → N.EDINP 12:39 → SUATTDRO 12:39 → N.EDINP 14:41 → N.2E 14:51
PROVIDERS: ADMIT Internal Medicine; ATTEND Internal Medicine Infectious Disease

== ENCOUNTER 2017-07-03 23:18 | Inpatient (IN) ==
[2017-07-04] MEDS ORDERED: SODIUM CHLORIDE 0.9% 2,000 ML IV STA (00:50)
[2017-07-04] MEDS ORDERED: VANCOMYCIN INJ 1,000 MG in SODIUM CHLORIDE 0.9% 250 ML IV STA (00:52)
[2017-07-04] MEDS ORDERED: CEFEPIME 2,000 MG in SODIUM CHLORIDE 0.9% 100 ML IV STA (00:52)
[2017-07-04] MEDS ORDERED: VANCOMYCIN 1,000 MG VIAL ONE (01:05)
[2017-07-04 01:09] LABS: Basophils % 0.1 % (0.0-0.8); Eosinophils # 0.1 10*3/uL (0.0-0.87); Eosinophils % 0.6 % (0.00-10.9); Hematocrit 26.5 VOL% (42.0-52.0); Hemoglobin 8.5 GM/DL (14.0-18.0); Immature Granulocytes % 0.5 %; Immature Granulocytes Absolute 0.07 #; Lymphocytes # 0.8 10*3/uL (1.4-4.0); Mean Corpuscular HGB Conc 32.1 GM/DL (32-36); Mean Corpuscular Hemoglobin 27 PG (27-34); Mean Corpuscular Volume 84.1 FL (87-102); Mean Platelet Volume 9.8 FL (9.6-12.0); Monocytes % 7.3 % (1.7-12.7); Neutrophils # 11.9 10*3/uL (1.4-7.4); Neutrophils % 85.5 % (38.7-73.9); Platelet Count 424 T/CUMM (130-400); Red Blood Count 3.15 MC/CUMM (3.8-5.5); Red Cell Distribution Width 16.6 % (9.3-17.3)
[2017-07-04 01:34] LABS: Albumin 2.1 G/DL (3.4-5.0); Bilirubin,Total 0.4 MG/DL (0.2-1.0); Calcium 8.9 MG/DL (8.5-10.1); Osmolality,Calculated 282.7 MOS/KG (273-304); Potassium 4.1 MMOL/L (3.5-5.1); Total Protein 7.3 G/DL (6.4-8.3)
[2017-07-04 03:14] LABS: Apearance,Urine CLOUDY (Clear); Bilirubin,Urine Negative (Negative); Blood, Urine Large mg/dL (Negative); Glucose,Urine (UA) Negative (Negative); Hyaline Casts,Urine 28 /LPF (0-3); Ketones,Urine Negative (Negative); Nitrite,Urine Negative (Negative); Protein,Urine 100 MG/DL; RBC,Urine 420 /HPF (0-4); Urine Color Yellow (Yellow); Urine Specific Gravity 1.009 (1.001-1.035); Urine Urobilinogen < 2.0 EU/DL (0.2-1.0); WBC,Urine 270 /HPF (0-6)
[2017-07-04] MEDS ORDERED: ALBUTEROL 2.5 MG/3 ML NEB RESP TX PRN (04:59)
[2017-07-04] MEDS ORDERED: ACETAMINOPHEN 325 MG TABLET PEG PRN (04:59)
[2017-07-04] MEDS: ALBUTEROL 2.5 MG/3 ML NEB RESP TX SCH ×5 (08:01→23:46)
[2017-07-04] MEDS ORDERED: PANTOPRAZOLE 40 MG TABLET PO SCH (09:00)
[2017-07-04] MEDS: DOCUSATE SODIUM 100 MG CAPSULE PEG SCH ×2 (09:02→21:28)
[2017-07-04] MEDS ORDERED: GLUCAGON 1 MG VIAL IM PRN (09:07)
[2017-07-04] MEDS ORDERED: DEXTROSE 50% 25 GM/50 ML VIAL IV PRN (09:07)
[2017-07-04] MEDS: SODIUM CHLORIDE 0.9% 1,000 ML IV SCH ×3 (09:50→22:12)
[2017-07-04] MEDS ORDERED: LEVOFLOXACIN INJ 750 MG in PREMIX 1 EACH IV SCH (12:00)
[2017-07-04] MEDS: INSULIN REGULAR 100 UNIT/ML SUBCUT SCH ×2 (12:17→19:17)
[2017-07-04] MEDS ORDERED: VANCOMYCIN INJ 500 MG in SODIUM CHLORIDE 0.9% 100 ML IV SCH (13:00)
[2017-07-04] MEDS: ONDANSETRON 4 MG/2 ML VIAL IV PRN ×2 (14:10→17:42)
[2017-07-04] MEDS: PANTOPRAZOLE 40 MG VIAL IV SCH ×2 (14:11→21:27)
[2017-07-04] MEDS: PIPERACILLIN/TAZOBACTAM 3,375 MG in SODIUM CHLORIDE 0.9% 100 ML IV SCH ×2 (14:13→16:35)
[2017-07-04] MEDS: VANCOMYCIN INJ 1,000 MG in SODIUM CHLORIDE 0.9% 250 ML IV SCH (14:14)
[2017-07-04] MEDS ORDERED: ALBUTEROL/IPRATROPIUM 3 ML NEB RESP TX PRN (14:52)
[2017-07-04] MEDS ORDERED: METOCLOPRAMIDE 5 MG TABLET PO PRN (14:52)
[2017-07-04] MEDS: BACLOFEN 20 MG TABLET PO SCH ×2 (16:33→21:28)
[2017-07-04] MEDS: MIDODRINE 5 MG TABLET PO SCH (21:28)
[2017-07-04] MEDS: traZODone 50 MG TABLET PO SCH (21:28)
[2017-07-04] MEDS: DICLOFENAC 1% GEL 100 GM TUBE TOP SCH (21:30)
[2017-07-05] MEDS: INSULIN REGULAR 100 UNIT/ML SUBCUT SCH ×4 (01:51→18:23)
[2017-07-05] MEDS: PIPERACILLIN/TAZOBACTAM 3,375 MG in SODIUM CHLORIDE 0.9% 100 ML IV SCH ×3 (02:03→18:25)
[2017-07-05] MEDS: ALBUTEROL 2.5 MG/3 ML NEB RESP TX SCH ×6 (03:57→23:41)
[2017-07-05] MEDS: SODIUM CHLORIDE 0.9% 1,000 ML IV SCH ×3 (06:13→22:46)
[2017-07-05 06:55] LABS: Basophils % 0.1 % (0.0-0.8); Eosinophils % 0.3 % (0.00-10.9); Hematocrit 19.9 VOL% (42.0-52.0); Hemoglobin 6.5 GM/DL (14.0-18.0); Immature Granulocytes % 0.5 %; Immature Granulocytes Absolute 0.05 #; Lymphocytes # 1.1 10*3/uL (1.4-4.0); Lymphocytes % 11.3 % (21.2-54.2); Mean Corpuscular HGB Conc 32.7 GM/DL (32-36); Mean Corpuscular Hemoglobin 27 PG (27-34); Mean Platelet Volume 9.5 FL (9.6-12.0); Monocytes # 0.9 10*3/uL (0.11-0.8); Monocytes % 8.7 % (1.7-12.7); Neutrophils # 7.7 10*3/uL (1.4-7.4); Neutrophils % 79.1 % (38.7-73.9); Platelet Count 304 T/CUMM (130-400); Red Blood Count 2.37 MC/CUMM (3.8-5.5); Red Cell Distribution Width 17.2 % (9.3-17.3); White Blood Count 9.8 T/CUMM (4-12)
[2017-07-05 07:32] LABS: Albumin 1.8 G/DL (3.4-5.0); Bilirubin,Total 0.4 MG/DL (0.2-1.0); Calcium 7.9 MG/DL (8.5-10.1); Magnesium 1.6 MG/DL (1.8-2.4); Osmolality,Calculated 281.3 MOS/KG (273-304); Phosphorous 4.9 MG/DL (2.5-4.9); Prealbumin 5.6 MG/DL (20-40); Total Protein 5.6 G/DL (6.4-8.3)
[2017-07-05 09:09] LABS: Hematocrit 25.9 VOL% (42.0-52.0); Hemoglobin 8.2 GM/DL (14.0-18.0)
[2017-07-05] MEDS ORDERED: SODIUM CHLORIDE 0.9% 250 ML IV PRN (09:49)
[2017-07-05] MEDS: ASCORBIC ACID 500 MG TABLET PO SCH (11:05)
[2017-07-05] MEDS: MAGNESIUM OXIDE 400 MG TABLET PO SCH (11:05)
[2017-07-05] MEDS: MIDODRINE 5 MG TABLET PO SCH ×2 (11:05→22:47)
[2017-07-05] MEDS: DULoxetine 30 MG CAPSULE PO SCH (11:06)
[2017-07-05] MEDS: BACLOFEN 20 MG TABLET PO SCH ×4 (11:06→22:47)
[2017-07-05] MEDS: DOCUSATE SODIUM 100 MG CAPSULE PEG SCH ×2 (11:06→22:47)
[2017-07-05] MEDS: PANTOPRAZOLE 40 MG VIAL IV SCH ×2 (11:10→22:54)
[2017-07-05] MEDS: DICLOFENAC 1% GEL 100 GM TUBE TOP SCH ×2 (11:39→22:51)
[2017-07-05] MEDS: POTASSIUM CHLORIDE RIDER 10 MEQ in PREMIX 1 EACH IV PRN ×5 (12:00→20:00)
[2017-07-05] MEDS: VANCOMYCIN INJ 1,000 MG in SODIUM CHLORIDE 0.9% 250 ML IV SCH (12:47)
[2017-07-05] MEDS: traZODone 50 MG TABLET PO SCH (22:47)
[2017-07-06] MEDS: INSULIN REGULAR 100 UNIT/ML SUBCUT SCH ×4 (01:05→18:00)
[2017-07-06] MEDS: PIPERACILLIN/TAZOBACTAM 3,375 MG in SODIUM CHLORIDE 0.9% 100 ML IV SCH ×3 (01:05→19:08)
[2017-07-06 02:49] LABS: Hematocrit 23.6 VOL% (42.0-52.0); Hemoglobin 7.5 GM/DL (14.0-18.0)
[2017-07-06] MEDS: ALBUTEROL 2.5 MG/3 ML NEB RESP TX SCH ×5 (03:26→20:13)
[2017-07-06] MEDS: SODIUM CHLORIDE 0.9% 1,000 ML IV SCH ×2 (05:27→13:50)
[2017-07-06] MEDS: POTASSIUM CHLORIDE RIDER 10 MEQ in PREMIX 1 EACH IV PRN ×6 (05:28→19:12)
[2017-07-06] MEDS: MORPHINE 2 MG/1 ML SYRINGE IV PRN (05:29)
[2017-07-06] MEDS ORDERED: SODIUM CHLORIDE 0.9% 250 ML IV PRN ×2 (05:45→05:49)
[2017-07-06 05:51] LABS: Calcium 8.3 MG/DL (8.5-10.1); Magnesium 1.8 MG/DL (1.8-2.4); Phosphorous 3.9 MG/DL (2.5-4.9)
[2017-07-06] MEDS: ONDANSETRON 4 MG/2 ML VIAL IV PRN (07:04)
[2017-07-06 07:18] LABS: Hematocrit 24.8 VOL% (42.0-52.0); Hemoglobin 8.1 GM/DL (14.0-18.0)
[2017-07-06] MEDS: PANTOPRAZOLE 40 MG VIAL IV SCH ×2 (09:52→22:09)
[2017-07-06] MEDS: MAGNESIUM OXIDE 400 MG TABLET PO SCH ×2 (09:58→16:55)
[2017-07-06] MEDS: MIDODRINE 5 MG TABLET PO SCH ×3 (09:58→22:09)
[2017-07-06] MEDS: DOCUSATE SODIUM 100 MG CAPSULE PEG SCH ×2 (09:58→22:09)
[2017-07-06] MEDS: BACLOFEN 20 MG TABLET PO SCH ×4 (09:58→22:09)
[2017-07-06] MEDS: DULoxetine 30 MG CAPSULE PO SCH (09:58)
[2017-07-06] MEDS: ASCORBIC ACID 500 MG TABLET PO SCH (09:59)
[2017-07-06] MEDS: DICLOFENAC 1% GEL 100 GM TUBE TOP SCH (09:59)
[2017-07-06 12:43] LABS: Hematocrit 28.1 VOL% (42.0-52.0)
[2017-07-06] MEDS: VANCOMYCIN INJ 1,000 MG in SODIUM CHLORIDE 0.9% 250 ML IV SCH (13:58)
[2017-07-06] MEDS: POTASSIUM CHLORIDE 20 MEQ TABLET PO SCH (14:12)
[2017-07-06] MEDS: traZODone 50 MG TABLET PO SCH (22:09)
[2017-07-07] MEDS: DICLOFENAC 1% GEL 100 GM TUBE TOP SCH ×3 (00:03→23:00)
[2017-07-07] MEDS: INSULIN REGULAR 100 UNIT/ML SUBCUT SCH ×4 (00:03→18:00)
[2017-07-07] MEDS: SODIUM CHLORIDE 0.9% 1,000 ML IV SCH ×5 (00:03→21:51)
[2017-07-07] MEDS: ALBUTEROL 2.5 MG/3 ML NEB RESP TX SCH ×7 (00:10→23:50)
[2017-07-07] MEDS: PIPERACILLIN/TAZOBACTAM 3,375 MG in SODIUM CHLORIDE 0.9% 100 ML IV SCH ×3 (01:14→18:39)
[2017-07-07] MEDS: POTASSIUM CHLORIDE RIDER 10 MEQ in PREMIX 1 EACH IV PRN ×2 (01:14→21:55)
[2017-07-07] MEDS: ONDANSETRON 4 MG/2 ML VIAL IV PRN ×2 (01:15→05:36)
[2017-07-07] MEDS: MORPHINE 2 MG/1 ML SYRINGE IV PRN ×3 (01:16→21:52)
[2017-07-07 07:26] LABS: Hematocrit 28.1 VOL% (42.0-52.0); Hemoglobin 8.8 GM/DL (14.0-18.0)
[2017-07-07 07:54] LABS: Calcium 7.8 MG/DL (8.5-10.1); Osmolality,Calculated 278.1 MOS/KG (273-304); Potassium 3.7 MMOL/L (3.5-5.1)
[2017-07-07 08:01] LABS: Apearance,Urine CLOUDY (Clear); Bacteria,Urine Occasional /HPF (Few); Bilirubin,Urine Negative (Negative); Blood, Urine Moderate mg/dL (Negative); Glucose,Urine (UA) Negative (Negative); Ketones,Urine Negative (Negative); Mucus,Urine Occasional /LPF (Occasional); Nitrite,Urine Negative (Negative); Protein,Urine Negative; RBC,Urine 16 /HPF (0-4); Urine Color Yellow (Yellow); Urine Specific Gravity 1.009 (1.001-1.035); Urine Urobilinogen < 2.0 EU/DL (0.2-1.0); WBC,Urine 456 /HPF (0-6)
[2017-07-07] MEDS ORDERED: PROPOFOL 200 MG/20 ML VIAL IV ONE (11:31)
[2017-07-07] MEDS ORDERED: LIDOCAINE 1% 5 ML VIAL ONE (11:31)
[2017-07-07] MEDS: POTASSIUM CHLORIDE 20 MEQ TABLET PO SCH (13:10)
[2017-07-07] MEDS: BACLOFEN 20 MG TABLET PO SCH ×3 (13:10→21:53)
[2017-07-07] MEDS: DULoxetine 30 MG CAPSULE PO SCH (13:10)
[2017-07-07] MEDS: ASCORBIC ACID 500 MG TABLET PO SCH (13:11)
[2017-07-07] MEDS: MIDODRINE 5 MG TABLET PO SCH ×2 (13:11→21:53)
[2017-07-07] MEDS: MAGNESIUM OXIDE 400 MG TABLET PO SCH (13:11)
[2017-07-07] MEDS: DOCUSATE SODIUM 100 MG CAPSULE PEG SCH ×2 (13:25→21:53)
[2017-07-07] MEDS: PANTOPRAZOLE 40 MG VIAL IV SCH ×2 (14:28→21:52)
[2017-07-07] MEDS: SODIUM CHLORIDE 0.9% IV SCH (16:33)
[2017-07-07] MEDS: fentaNYL 50 MCG/HR PATCH TRANSDERM SCH (16:33)
[2017-07-07] MEDS: COLISTIMETHATE IV SCH (16:33)
[2017-07-07] MEDS: traZODone 50 MG TABLET PO SCH (21:53)
[2017-07-08] MEDS: INSULIN REGULAR 100 UNIT/ML SUBCUT SCH ×4 (01:19→17:55)
[2017-07-08] MEDS: PIPERACILLIN/TAZOBACTAM 3,375 MG in SODIUM CHLORIDE 0.9% 100 ML IV SCH ×3 (01:24→18:18)
[2017-07-08] MEDS: SODIUM CHLORIDE 0.9% IV SCH ×3 (01:25→22:56)
[2017-07-08] MEDS: COLISTIMETHATE IV SCH ×3 (01:25→22:56)
[2017-07-08] MEDS: ALBUTEROL 2.5 MG/3 ML NEB RESP TX SCH ×6 (02:29→23:43)
[2017-07-08 05:57] LABS: Albumin 1.7 G/DL (3.4-5.0); Calcium 7.8 MG/DL (8.5-10.1); Osmolality,Calculated 273.5 MOS/KG (273-304); Phosphorous 3.2 MG/DL (2.5-4.9); Potassium 3.4 MMOL/L (3.5-5.1)
[2017-07-08] MEDS: POTASSIUM CHLORIDE RIDER 10 MEQ in PREMIX 1 EACH IV PRN ×4 (06:30→13:34)
[2017-07-08] MEDS: PANTOPRAZOLE 40 MG VIAL IV SCH ×2 (10:04→20:58)
[2017-07-08] MEDS: BACLOFEN 20 MG TABLET PO SCH ×4 (10:05→20:48)
[2017-07-08] MEDS: POTASSIUM CHLORIDE 20 MEQ TABLET PO SCH (10:05)
[2017-07-08] MEDS: DULoxetine 30 MG CAPSULE PO SCH (10:05)
[2017-07-08] MEDS: MIDODRINE 5 MG TABLET PO SCH ×2 (10:06→20:49)
[2017-07-08] MEDS: SODIUM CHLORIDE 0.9% 1,000 ML IV SCH ×3 (10:06→23:30)
[2017-07-08] MEDS: ASCORBIC ACID 500 MG TABLET PO SCH (10:06)
[2017-07-08] MEDS: DOCUSATE SODIUM 100 MG CAPSULE PEG SCH ×2 (10:06→20:48)
[2017-07-08] MEDS: MAGNESIUM OXIDE 400 MG TABLET PO SCH (10:06)
[2017-07-08] MEDS: DICLOFENAC 1% GEL 100 GM TUBE TOP SCH ×2 (10:06→20:56)
[2017-07-08] MEDS: traZODone 50 MG TABLET PO SCH (20:49)
[2017-07-08] MEDS: MORPHINE 2 MG/1 ML SYRINGE IV PRN (20:49)
[2017-07-09] MEDS: INSULIN REGULAR 100 UNIT/ML SUBCUT SCH ×5 (00:18→23:52)
[2017-07-09] MEDS: PIPERACILLIN/TAZOBACTAM 3,375 MG in SODIUM CHLORIDE 0.9% 100 ML IV SCH ×3 (00:43→16:11)
[2017-07-09] MEDS: ALBUTEROL 2.5 MG/3 ML NEB RESP TX SCH ×6 (03:30→23:08)
[2017-07-09 07:23] LABS: Albumin 1.8 G/DL (3.4-5.0); Calcium 8.3 MG/DL (8.5-10.1); Osmolality,Calculated 276.3 MOS/KG (273-304); Phosphorous 4.9 MG/DL (2.5-4.9); Potassium 4.1 MMOL/L (3.5-5.1)
[2017-07-09] MEDS: BACLOFEN 20 MG TABLET PO SCH ×4 (09:18→21:02)
[2017-07-09] MEDS: PANTOPRAZOLE 40 MG VIAL IV SCH ×2 (09:18→21:01)
[2017-07-09] MEDS: DULoxetine 30 MG CAPSULE PO SCH (09:18)
[2017-07-09] MEDS: POTASSIUM CHLORIDE 20 MEQ TABLET PO SCH (09:18)
[2017-07-09] MEDS: DOCUSATE SODIUM 100 MG CAPSULE PEG SCH ×2 (09:19→21:02)
[2017-07-09] MEDS: MIDODRINE 5 MG TABLET PO SCH ×2 (09:19→21:02)
[2017-07-09] MEDS: SODIUM CHLORIDE 0.9% 1,000 ML IV SCH ×3 (09:19→23:23)
[2017-07-09] MEDS: ASCORBIC ACID 500 MG TABLET PO SCH (09:19)
[2017-07-09] MEDS: DICLOFENAC 1% GEL 100 GM TUBE TOP SCH ×2 (09:19→21:02)
[2017-07-09] MEDS: MAGNESIUM OXIDE 400 MG TABLET PO SCH (09:19)
[2017-07-09] MEDS: SODIUM CHLORIDE 0.9% IV SCH ×2 (13:17→23:36)
[2017-07-09] MEDS: COLISTIMETHATE IV SCH ×2 (13:17→23:36)
[2017-07-09] MEDS: traZODone 50 MG TABLET PO SCH (21:02)
[2017-07-10] MEDS: PIPERACILLIN/TAZOBACTAM 3,375 MG in SODIUM CHLORIDE 0.9% 100 ML IV SCH ×3 (01:04→17:07)
[2017-07-10] MEDS: ALBUTEROL 2.5 MG/3 ML NEB RESP TX SCH ×6 (02:59→23:25)
[2017-07-10] MEDS: SODIUM CHLORIDE 0.9% 1,000 ML IV SCH ×2 (05:54→15:41)
[2017-07-10] MEDS: INSULIN REGULAR 100 UNIT/ML SUBCUT SCH ×3 (05:54→18:16)
[2017-07-10 08:42] LABS: Albumin 1.7 G/DL (3.4-5.0); Calcium 8.7 MG/DL (8.5-10.1); Osmolality,Calculated 276.4 MOS/KG (273-304); Phosphorous 5.6 MG/DL (2.5-4.9); Potassium 3.9 MMOL/L (3.5-5.1)
[2017-07-10 09:01] LABS: Hematocrit 27.6 VOL% (42.0-52.0); Hemoglobin 8.8 GM/DL (14.0-18.0)
[2017-07-10] MEDS: PANTOPRAZOLE 40 MG VIAL IV SCH ×2 (09:46→21:38)
[2017-07-10] MEDS: fentaNYL 50 MCG/HR PATCH TRANSDERM SCH (09:48)
[2017-07-10] MEDS: MIDODRINE 5 MG TABLET PO SCH ×2 (09:49→21:38)
[2017-07-10] MEDS: DULoxetine 30 MG CAPSULE PO SCH (09:49)
[2017-07-10] MEDS: DOCUSATE SODIUM 100 MG CAPSULE PEG SCH ×2 (09:49→21:39)
[2017-07-10] MEDS: BACLOFEN 20 MG TABLET PO SCH ×4 (09:49→21:39)
[2017-07-10] MEDS: POTASSIUM CHLORIDE 20 MEQ TABLET PO SCH (09:49)
[2017-07-10] MEDS: MAGNESIUM OXIDE 400 MG TABLET PO SCH (09:49)
[2017-07-10] MEDS: ASCORBIC ACID 500 MG TABLET PO SCH (09:49)
[2017-07-10] MEDS: DICLOFENAC 1% GEL 100 GM TUBE TOP SCH ×2 (09:50→21:44)
[2017-07-10] MEDS: COLISTIMETHATE IV SCH ×2 (11:28→23:09)
[2017-07-10] MEDS: SODIUM CHLORIDE 0.9% IV SCH ×2 (11:28→23:09)
[2017-07-10] MEDS: traZODone 50 MG TABLET PO SCH (21:39)
[2017-07-11] MEDS: PIPERACILLIN/TAZOBACTAM 3,375 MG in SODIUM CHLORIDE 0.9% 100 ML IV SCH ×2 (00:23→10:18)
[2017-07-11] MEDS: INSULIN REGULAR 100 UNIT/ML SUBCUT SCH ×4 (02:15→18:04)
[2017-07-11] MEDS: ALBUTEROL 2.5 MG/3 ML NEB RESP TX SCH ×5 (02:20→20:29)
[2017-07-11] MEDS: SODIUM CHLORIDE 0.9% 1,000 ML IV SCH ×3 (04:26→13:01)
[2017-07-11 07:17] LABS: Basophils % 0.2 % (0.0-0.8); Eosinophils # 0.2 10*3/uL (0.0-0.87); Eosinophils % 2.1 % (0.00-10.9); Hematocrit 28.8 VOL% (42.0-52.0); Immature Granulocytes % 0.7 %; Immature Granulocytes Absolute 0.06 #; Lymphocytes # 1.1 10*3/uL (1.4-4.0); Lymphocytes % 12.7 % (21.2-54.2); Mean Corpuscular HGB Conc 31.3 GM/DL (32-36); Mean Corpuscular Hemoglobin 27 PG (27-34); Mean Corpuscular Volume 87.8 FL (87-102); Mean Platelet Volume 9.7 FL (9.6-12.0); Monocytes # 0.6 10*3/uL (0.11-0.8); Monocytes % 6.5 % (1.7-12.7); Neutrophils # 6.7 10*3/uL (1.4-7.4); Neutrophils % 77.8 % (38.7-73.9); Platelet Count 313 T/CUMM (130-400); Red Blood Count 3.28 MC/CUMM (3.8-5.5); Red Cell Distribution Width 16.9 % (9.3-17.3); White Blood Count 8.6 T/CUMM (4-12)
[2017-07-11 07:57] LABS: Calcium 8.9 MG/DL (8.5-10.1); Osmolality,Calculated 278.3 MOS/KG (273-304); Potassium 4.1 MMOL/L (3.5-5.1)
[2017-07-11] MEDS: PANTOPRAZOLE 40 MG VIAL IV SCH ×2 (08:51→21:17)
[2017-07-11] MEDS: ASCORBIC ACID 500 MG TABLET PO SCH (08:57)
[2017-07-11] MEDS: DULoxetine 30 MG CAPSULE PO SCH (08:57)
[2017-07-11] MEDS: BACLOFEN 20 MG TABLET PO SCH ×4 (08:57→20:42)
[2017-07-11] MEDS: POTASSIUM CHLORIDE 20 MEQ TABLET PO SCH (08:57)
[2017-07-11] MEDS: MIDODRINE 5 MG TABLET PO SCH ×2 (08:57→20:42)
[2017-07-11] MEDS: DOCUSATE SODIUM 100 MG CAPSULE PEG SCH ×2 (08:57→20:42)
[2017-07-11] MEDS: MAGNESIUM OXIDE 400 MG TABLET PO SCH (08:57)
[2017-07-11] MEDS: DICLOFENAC 1% GEL 100 GM TUBE TOP SCH ×2 (10:18→21:17)
[2017-07-11] MEDS ORDERED: COLISTIMETHATE IV SCH (11:00)
[2017-07-11] MEDS ORDERED: SODIUM CHLORIDE 0.9% IV SCH (11:00)
[2017-07-11] MEDS ORDERED: SKIN HEALING OINT (AQUAPHOR) 50 GM TUBE TOP PRN (12:11)
[2017-07-11] MEDS: SODIUM HYPOCHLORITE 0.25% IRRIG 473 ML BOTTLE TOP SCH (14:08)
[2017-07-11] MEDS: COLLAGENASE OINT 30 GM TUBE TOP SCH (14:09)
[2017-07-11] MEDS: DEXTROSE 5% NACL 0.9% 1,000 ML IV SCH (14:09)
[2017-07-12] MEDS: ALBUTEROL 2.5 MG/3 ML NEB RESP TX SCH ×6 (01:02→20:03)
[2017-07-12] MEDS: INSULIN REGULAR 100 UNIT/ML SUBCUT SCH ×4 (02:49→17:53)
[2017-07-12] MEDS: DEXTROSE 5% NACL 0.9% 1,000 ML IV SCH ×2 (02:56→18:31)
[2017-07-12] MEDS: PANTOPRAZOLE 40 MG VIAL IV SCH ×2 (09:05→21:12)
[2017-07-12] MEDS: BACLOFEN 20 MG TABLET PO SCH ×4 (09:06→21:12)
[2017-07-12] MEDS: MAGNESIUM OXIDE 400 MG TABLET PO SCH (09:06)
[2017-07-12] MEDS: MIDODRINE 5 MG TABLET PO SCH ×2 (09:06→21:12)
[2017-07-12] MEDS: POTASSIUM CHLORIDE 20 MEQ TABLET PO SCH (09:06)
[2017-07-12] MEDS: ASCORBIC ACID 500 MG TABLET PO SCH (09:07)
[2017-07-12] MEDS: DOCUSATE SODIUM 100 MG CAPSULE PEG SCH ×2 (09:07→21:12)
[2017-07-12] MEDS: SODIUM HYPOCHLORITE 0.25% IRRIG 473 ML BOTTLE TOP SCH (11:55)
[2017-07-12] MEDS: COLLAGENASE OINT 30 GM TUBE TOP SCH (11:56)
[2017-07-12] MEDS: DICLOFENAC 1% GEL 100 GM TUBE TOP SCH ×2 (11:56→21:15)
[2017-07-13] MEDS: ALBUTEROL 2.5 MG/3 ML NEB RESP TX SCH ×6 (00:11→20:09)
[2017-07-13] MEDS: INSULIN REGULAR 100 UNIT/ML SUBCUT SCH ×4 (00:28→18:14)
[2017-07-13] MEDS: DEXTROSE 5% NACL 0.9% 1,000 ML IV SCH (05:53)
[2017-07-13 06:33] LABS: Basophils % 0.1 % (0.0-0.8); Eosinophils # 0.1 10*3/uL (0.0-0.87); Eosinophils % 1.3 % (0.00-10.9); Hemoglobin 8.6 GM/DL (14.0-18.0); Immature Granulocytes % 0.3 %; Immature Granulocytes Absolute 0.03 #; Lymphocytes # 1.3 10*3/uL (1.4-4.0); Lymphocytes % 14.8 % (21.2-54.2); Mean Corpuscular HGB Conc 31.9 GM/DL (32-36); Mean Corpuscular Hemoglobin 27 PG (27-34); Mean Platelet Volume 10.6 FL (9.6-12.0); Monocytes # 0.7 10*3/uL (0.11-0.8); Monocytes % 8.1 % (1.7-12.7); Neutrophils # 6.6 10*3/uL (1.4-7.4); Neutrophils % 75.4 % (38.7-73.9); Platelet Count 338 T/CUMM (130-400); Red Blood Count 3.14 MC/CUMM (3.8-5.5); Red Cell Distribution Width 16.6 % (9.3-17.3); White Blood Count 8.8 T/CUMM (4-12)
[2017-07-13 07:17] LABS: Calcium 9.2 MG/DL (8.5-10.1); Osmolality,Calculated 273.5 MOS/KG (273-304); Potassium 2.7 MMOL/L (3.5-5.1)
[2017-07-13] MEDS ORDERED: MAGNESIUM SULF RIDER 2 GM in PREMIX 1 EACH IV PRN (07:34)
[2017-07-13] MEDS ORDERED: MAGNESIUM SULF RIDER 4 GM in PREMIX 1 EACH IV PRN (07:34)
[2017-07-13] MEDS: POTASSIUM CHLORIDE RIDER 10 MEQ in PREMIX 1 EACH IV PRN ×2 (07:51→09:55)
[2017-07-13] MEDS: DOCUSATE SODIUM 100 MG CAPSULE PEG SCH ×2 (08:02→21:32)
[2017-07-13] MEDS: POTASSIUM CHLORIDE 20 MEQ TABLET PO SCH (08:02)
[2017-07-13] MEDS: MAGNESIUM OXIDE 400 MG TABLET PO SCH (08:02)
[2017-07-13] MEDS: BACLOFEN 20 MG TABLET PO SCH ×4 (08:02→21:32)
[2017-07-13] MEDS: ASCORBIC ACID 500 MG TABLET PO SCH (08:03)
[2017-07-13] MEDS: MIDODRINE 5 MG TABLET PO SCH ×2 (08:03→21:32)
[2017-07-13] MEDS: PANTOPRAZOLE 40 MG VIAL IV SCH ×2 (08:39→21:31)
[2017-07-13] MEDS: SODIUM HYPOCHLORITE 0.25% IRRIG 473 ML BOTTLE TOP SCH (12:43)
[2017-07-13] MEDS: COLLAGENASE OINT 30 GM TUBE TOP SCH (12:43)
[2017-07-13] MEDS: DICLOFENAC 1% GEL 100 GM TUBE TOP SCH ×2 (12:43→21:32)
[2017-07-13] MEDS ORDERED: POTASSIUM CHLORIDE 20 MEQ PACK PO ONE ×2 (20:22)
[2017-07-14] MEDS: INSULIN REGULAR 100 UNIT/ML SUBCUT SCH ×4 (00:02→17:20)
[2017-07-14] MEDS: ALBUTEROL 2.5 MG/3 ML NEB RESP TX SCH ×7 (00:08→23:50)
[2017-07-14] MEDS: DEXTROSE 5% NACL 0.9% 1,000 ML IV SCH ×3 (04:10→22:08)
[2017-07-14 08:20] LABS: Alanine Aminotransferase 17 U/L (16-61); Albumin 1.9 G/DL (3.4-5.0); Alkaline Phosphatase 90 U/L (45-117); Aspartate Amino Transferase 25 U/L (0-37); Bilirubin,Total < 0.39 MG/DL (0.2-1.0); Blood Urea Nitrogen 8 MG/DL (7-18); Calcium 10.1 MG/DL (8.5-10.1); Glucose 68 MG/DL (74-106); Magnesium 1.3 MG/DL (1.8-2.4); Osmolality,Calculated 268.8 MOS/KG (273-304); Phosphorous 3.6 MG/DL (2.5-4.9); Potassium 3.7 MMOL/L (3.5-5.1); Sodium 137 MMOL/L (136-145); Total Protein 6.9 G/DL (6.4-8.3)
[2017-07-14] MEDS: DOCUSATE SODIUM 100 MG CAPSULE PEG SCH ×2 (09:23→22:09)
[2017-07-14] MEDS: ASCORBIC ACID 500 MG TABLET PO SCH (09:23)
[2017-07-14] MEDS: MIDODRINE 5 MG TABLET PO SCH ×2 (09:23→22:09)
[2017-07-14] MEDS: DICLOFENAC 1% GEL 100 GM TUBE TOP SCH ×2 (09:23→23:52)
[2017-07-14] MEDS: BACLOFEN 20 MG TABLET PO SCH ×4 (09:23→22:09)
[2017-07-14] MEDS: POTASSIUM CHLORIDE RIDER 20 MEQ in PREMIX 1 EACH IV PRN (09:24)
[2017-07-14 09:26] LABS: Basophils % 0.2 % (0.0-0.8); Eosinophils # 0.1 10*3/uL (0.0-0.87); Eosinophils % 1.5 % (0.00-10.9); Hematocrit 28.4 VOL% (42.0-52.0); Immature Granulocytes % 0.5 %; Immature Granulocytes Absolute 0.05 #; Lymphocytes # 1.3 10*3/uL (1.4-4.0); Lymphocytes % 13.8 % (21.2-54.2); Mean Corpuscular HGB Conc 31.7 GM/DL (32-36); Mean Corpuscular Hemoglobin 27 PG (27-34); Mean Corpuscular Volume 85.3 FL (87-102); Mean Platelet Volume 10.5 FL (9.6-12.0); Monocytes # 0.8 10*3/uL (0.11-0.8); Monocytes % 8.4 % (1.7-12.7); Neutrophils # 6.9 10*3/uL (1.4-7.4); Neutrophils % 75.6 % (38.7-73.9); Platelet Count 285 T/CUMM (130-400); Red Blood Count 3.33 MC/CUMM (3.8-5.5); Red Cell Distribution Width 16.3 % (9.3-17.3); White Blood Count 9.1 T/CUMM (4-12)
[2017-07-14] MEDS: PANTOPRAZOLE 40 MG VIAL IV SCH ×2 (10:16→22:09)
[2017-07-14] MEDS ORDERED: PROPOFOL 200 MG/20 ML VIAL IV ONE ×2 (11:40→13:04)
[2017-07-14] MEDS ORDERED: VANCOMYCIN 1,000 MG VIAL ONE (11:49)
[2017-07-14] MEDS ORDERED: ceFAZolin 1,000 MG VIAL ONE (11:50)
[2017-07-14] MEDS ORDERED: SODIUM CHLORIDE 0.9% 100 ML IV ONE (13:04)
[2017-07-14] MEDS ORDERED: fentaNYL 100 MCG/2 ML VIAL ONE (13:04)
[2017-07-14] MEDS ORDERED: MIDAZOLAM 2 MG/2 ML VIAL ONE (13:04)
[2017-07-14] MEDS: POTASSIUM CHLORIDE 20 MEQ TABLET PO SCH (15:25)
[2017-07-14] MEDS: MAGNESIUM OXIDE 400 MG TABLET PO SCH (15:25)
[2017-07-14] MEDS: SODIUM HYPOCHLORITE 0.25% IRRIG 473 ML BOTTLE TOP SCH (15:26)
[2017-07-14] MEDS: COLLAGENASE OINT 30 GM TUBE TOP SCH (15:26)
[2017-07-14] MEDS: POTASSIUM CHLORIDE RIDER 10 MEQ in PREMIX 1 EACH IV PRN (22:00)
[2017-07-15] MEDS: INSULIN REGULAR 100 UNIT/ML SUBCUT SCH (01:52)
[2017-07-15] MEDS: POTASSIUM CHLORIDE RIDER 10 MEQ in PREMIX 1 EACH IV PRN (01:57)
[2017-07-15] MEDS: ALBUTEROL 2.5 MG/3 ML NEB RESP TX SCH ×6 (03:35→23:52)
[2017-07-15 05:59] LABS: Basophils % 0.2 % (0.0-0.8); Eosinophils # 0.1 10*3/uL (0.0-0.87); Eosinophils % 0.9 % (0.00-10.9); Hematocrit 27.4 VOL% (42.0-52.0); Hemoglobin 8.8 GM/DL (14.0-18.0); Immature Granulocytes % 0.4 %; Immature Granulocytes Absolute 0.05 #; Lymphocytes # 1.4 10*3/uL (1.4-4.0); Lymphocytes % 10.8 % (21.2-54.2); Mean Corpuscular HGB Conc 32.1 GM/DL (32-36); Mean Corpuscular Hemoglobin 28 PG (27-34); Mean Corpuscular Volume 85.6 FL (87-102); Monocytes # 0.7 10*3/uL (0.11-0.8); Monocytes % 5.1 % (1.7-12.7); Neutrophils % 82.6 % (38.7-73.9); Platelet Count 335 T/CUMM (130-400); Red Cell Distribution Width 16.2 % (9.3-17.3); White Blood Count 13.3 T/CUMM (4-12)
[2017-07-15 06:32] LABS: Calcium 9.6 MG/DL (8.5-10.1)
[2017-07-15 06:33] LABS: Osmolality,Calculated 271.1 MOS/KG (273-304); Potassium 3.9 MMOL/L (3.5-5.1)
[2017-07-15 06:35] LABS: Alanine Aminotransferase 15 U/L (16-61); Albumin 1.7 G/DL (3.4-5.0); Alkaline Phosphatase 84 U/L (45-117); Aspartate Amino Transferase 19 U/L (0-37); Bilirubin,Total < 0.39 MG/DL (0.2-1.0); Calcium 9.3 MG/DL (8.5-10.1); Phosphorous 2.7 MG/DL (2.5-4.9); Total Protein 6.2 G/DL (6.4-8.3)
[2017-07-15 06:36] LABS: Blood Urea Nitrogen 10 MG/DL (7-18); Glucose 155 MG/DL (74-106); Magnesium 1.9 MG/DL (1.8-2.4); Osmolality,Calculated 271.1 MOS/KG (273-304); Potassium 3.9 MMOL/L (3.5-5.1); Sodium 135 MMOL/L (136-145)
[2017-07-15] MEDS: MULTIVITAMIN (BEROCCA) TABLET PO SCH (08:48)
[2017-07-15] MEDS: DOCUSATE SODIUM 100 MG CAPSULE PEG SCH ×2 (08:48→21:11)
[2017-07-15] MEDS: ASCORBIC ACID 500 MG TABLET PO SCH (08:48)
[2017-07-15] MEDS: POTASSIUM CHLORIDE 20 MEQ TABLET PO SCH (08:48)
[2017-07-15] MEDS: BACLOFEN 20 MG TABLET PO SCH ×4 (08:48→21:11)
[2017-07-15] MEDS: MAGNESIUM OXIDE 400 MG TABLET PO SCH (08:48)
[2017-07-15] MEDS: PANTOPRAZOLE 40 MG VIAL IV SCH ×2 (08:49→21:10)
[2017-07-15] MEDS: MIDODRINE 5 MG TABLET PO SCH ×2 (08:49→21:11)
[2017-07-15] MEDS: DICLOFENAC 1% GEL 100 GM TUBE TOP SCH ×2 (08:50→21:11)
[2017-07-15] MEDS: DEXTROSE 5% NACL 0.9% 1,000 ML IV SCH (09:27)
[2017-07-15] MEDS: POTASSIUM CHLORIDE RIDER 20 MEQ in PREMIX 1 EACH IV PRN (10:49)
[2017-07-15] MEDS: ZINC SULFATE 220 MG CAPSULE PO SCH (12:23)
[2017-07-15] MEDS: SODIUM HYPOCHLORITE 0.25% IRRIG 473 ML BOTTLE TOP SCH (15:00)
[2017-07-15] MEDS: COLLAGENASE OINT 30 GM TUBE TOP SCH (15:00)
[2017-07-15] MEDS ORDERED: LIDOCAINE 2% TOP JELLY 20 ML VIAL INTRAURETH ONE (15:01)
[2017-07-15] MEDS ORDERED: CIPROFLOXACIN 500 MG TABLET PO SCH (16:00)
[2017-07-15] MEDS: CIPROFLOXACIN 500 MG TABLET PO SCH (21:10)
[2017-07-16] MEDS: ALBUTEROL 2.5 MG/3 ML NEB RESP TX SCH ×6 (02:43→23:45)
[2017-07-16] MEDS: DEXTROSE 5% NACL 0.9% 1,000 ML IV SCH ×2 (03:51→21:40)
[2017-07-16 05:41] LABS: Basophils % 0.2 % (0.0-0.8); Eosinophils # 0.2 10*3/uL (0.0-0.87); Eosinophils % 1.2 % (0.00-10.9); Hematocrit 27.8 VOL% (42.0-52.0); Immature Granulocytes % 0.6 %; Immature Granulocytes Absolute 0.07 #; Lymphocytes # 1.2 10*3/uL (1.4-4.0); Lymphocytes % 9.9 % (21.2-54.2); Mean Corpuscular HGB Conc 32.4 GM/DL (32-36); Mean Corpuscular Hemoglobin 28 PG (27-34); Mean Platelet Volume 9.8 FL (9.6-12.0); Monocytes # 1.1 10*3/uL (0.11-0.8); Monocytes % 8.9 % (1.7-12.7); Neutrophils # 9.9 10*3/uL (1.4-7.4); Neutrophils % 79.2 % (38.7-73.9); Platelet Count 333 T/CUMM (130-400); Red Blood Count 3.27 MC/CUMM (3.8-5.5); White Blood Count 12.5 T/CUMM (4-12)
[2017-07-16 06:12] LABS: Osmolality,Calculated 276.5 MOS/KG (273-304); Potassium 3.7 MMOL/L (3.5-5.1)
[2017-07-16 06:17] LABS: Albumin 1.8 G/DL (3.4-5.0); Bilirubin,Total 0.4 MG/DL (0.2-1.0); Magnesium 1.9 MG/DL (1.8-2.4); Osmolality,Calculated 278.4 MOS/KG (273-304); Phosphorous 4.2 MG/DL (2.5-4.9); Potassium 3.7 MMOL/L (3.5-5.1); Total Protein 6.7 G/DL (6.4-8.3)
[2017-07-16] MEDS: POTASSIUM CHLORIDE RIDER 10 MEQ in PREMIX 1 EACH IV PRN (09:21)
[2017-07-16] MEDS: ZINC SULFATE 220 MG CAPSULE PO SCH (09:22)
[2017-07-16] MEDS: MAGNESIUM OXIDE 400 MG TABLET PO SCH (09:22)
[2017-07-16] MEDS: BACLOFEN 20 MG TABLET PO SCH ×4 (09:22→21:40)
[2017-07-16] MEDS: POTASSIUM CHLORIDE 20 MEQ TABLET PO SCH (09:23)
[2017-07-16] MEDS: CIPROFLOXACIN 500 MG TABLET PO SCH (09:23)
[2017-07-16] MEDS: PANTOPRAZOLE 40 MG VIAL IV SCH ×2 (09:24→21:40)
[2017-07-16] MEDS: ASCORBIC ACID 500 MG TABLET PO SCH (09:24)
[2017-07-16] MEDS: SODIUM HYPOCHLORITE 0.25% IRRIG 473 ML BOTTLE TOP SCH (09:24)
[2017-07-16] MEDS: MULTIVITAMIN (BEROCCA) TABLET PO SCH (09:24)
[2017-07-16] MEDS: MIDODRINE 5 MG TABLET PO SCH ×2 (09:24→21:40)
[2017-07-16] MEDS: DOCUSATE SODIUM 100 MG CAPSULE PEG SCH ×2 (09:24→21:40)
[2017-07-16] MEDS: COLLAGENASE OINT 30 GM TUBE TOP SCH (09:25)
[2017-07-16] MEDS: DICLOFENAC 1% GEL 100 GM TUBE TOP SCH ×2 (11:31→21:41)
[2017-07-17] MEDS: ALBUTEROL 2.5 MG/3 ML NEB RESP TX SCH ×6 (04:06→23:10)
[2017-07-17 06:22] LABS: Basophils % 0.2 % (0.0-0.8); Eosinophils # 0.2 10*3/uL (0.0-0.87); Eosinophils % 1.5 % (0.00-10.9); Hematocrit 25.9 VOL% (42.0-52.0); Immature Granulocytes % 0.5 %; Immature Granulocytes Absolute 0.06 #; Lymphocytes # 1.4 10*3/uL (1.4-4.0); Mean Corpuscular HGB Conc 30.9 GM/DL (32-36); Mean Corpuscular Hemoglobin 26 PG (27-34); Mean Corpuscular Volume 85.5 FL (87-102); Mean Platelet Volume 10.3 FL (9.6-12.0); Monocytes # 0.8 10*3/uL (0.11-0.8); Monocytes % 6.1 % (1.7-12.7); Neutrophils # 9.9 10*3/uL (1.4-7.4); Neutrophils % 80.7 % (38.7-73.9); Platelet Count 324 T/CUMM (130-400); Red Blood Count 3.03 MC/CUMM (3.8-5.5); Red Cell Distribution Width 16.4 % (9.3-17.3); White Blood Count 12.3 T/CUMM (4-12)
[2017-07-17 06:50] LABS: Calcium 9.3 MG/DL (8.5-10.1); Magnesium 1.8 MG/DL (1.8-2.4); Osmolality,Calculated 275.5 MOS/KG (273-304); Phosphorous 3.7 MG/DL (2.5-4.9); Potassium 3.6 MMOL/L (3.5-5.1)
[2017-07-17] MEDS: MAGNESIUM OXIDE 400 MG TABLET PO SCH (09:34)
[2017-07-17] MEDS: PANTOPRAZOLE 40 MG VIAL IV SCH ×2 (09:34→20:49)
[2017-07-17] MEDS: DOCUSATE SODIUM 100 MG CAPSULE PEG SCH ×2 (09:34→20:49)
[2017-07-17] MEDS: BACLOFEN 20 MG TABLET PO SCH ×4 (09:34→20:49)
[2017-07-17] MEDS: POTASSIUM CHLORIDE 20 MEQ TABLET PO SCH (09:34)
[2017-07-17] MEDS: MIDODRINE 5 MG TABLET PO SCH ×2 (09:34→20:49)
[2017-07-17] MEDS: ASCORBIC ACID 500 MG TABLET PO SCH (09:35)
[2017-07-17] MEDS: MULTIVITAMIN (BEROCCA) TABLET PO SCH (09:35)
[2017-07-17] MEDS: COLLAGENASE OINT 30 GM TUBE TOP SCH (09:40)
[2017-07-17] MEDS: SODIUM HYPOCHLORITE 0.25% IRRIG 473 ML BOTTLE TOP SCH (09:40)
[2017-07-17] MEDS: DICLOFENAC 1% GEL 100 GM TUBE TOP SCH ×2 (09:40→20:59)
[2017-07-17] MEDS: ZINC SULFATE 220 MG CAPSULE PO SCH (09:41)
[2017-07-17] MEDS: POTASSIUM CHLORIDE RIDER 10 MEQ in PREMIX 1 EACH IV PRN ×2 (09:50→11:10)
[2017-07-17] MEDS ORDERED: MORPHINE 2 MG/1 ML SYRINGE IV ONE (14:32)
[2017-07-17] MEDS: DEXTROSE 5% NACL 0.9% 1,000 ML IV SCH (19:25)
[2017-07-18] MEDS: ALBUTEROL 2.5 MG/3 ML NEB RESP TX SCH ×3 (07:35→14:18)
[2017-07-18] MEDS: PANTOPRAZOLE 40 MG VIAL IV SCH (10:15)
[2017-07-18] MEDS: DOCUSATE SODIUM 100 MG CAPSULE PEG SCH (10:15)
[2017-07-18] MEDS: BACLOFEN 20 MG TABLET PO SCH ×2 (10:16→14:17)
[2017-07-18] MEDS: MIDODRINE 5 MG TABLET PO SCH (10:16)
[2017-07-18] MEDS: MULTIVITAMIN (BEROCCA) TABLET PO SCH (10:16)
[2017-07-18] MEDS: SODIUM HYPOCHLORITE 0.25% IRRIG 473 ML BOTTLE TOP SCH (10:16)
[2017-07-18] MEDS: ASCORBIC ACID 500 MG TABLET PO SCH (10:16)
[2017-07-18] MEDS: POTASSIUM CHLORIDE 20 MEQ TABLET PO SCH (10:16)
[2017-07-18] MEDS: MAGNESIUM OXIDE 400 MG TABLET PO SCH (10:16)
[2017-07-18] MEDS: DICLOFENAC 1% GEL 100 GM TUBE TOP SCH (10:17)
[2017-07-18] MEDS: ZINC SULFATE 220 MG CAPSULE PO SCH (10:17)
[2017-07-18] MEDS: DEXTROSE 5% NACL 0.9% 1,000 ML IV SCH ×2 (10:20→10:21)
[2017-07-18 10:48] LABS: Basophils % 0.2 % (0.0-0.8); Eosinophils # 0.1 10*3/uL (0.0-0.87); Eosinophils % 0.4 % (0.00-10.9); Hematocrit 24.1 VOL% (42.0-52.0); Hemoglobin 7.3 GM/DL (14.0-18.0); Immature Granulocytes % 0.4 %; Immature Granulocytes Absolute 0.08 #; Lymphocytes # 2.5 10*3/uL (1.4-4.0); Lymphocytes % 13.6 % (21.2-54.2); Mean Corpuscular HGB Conc 30.3 GM/DL (32-36); Mean Corpuscular Hemoglobin 25 PG (27-34); Mean Corpuscular Volume 83.4 FL (87-102); Mean Platelet Volume 11.6 FL (9.6-12.0); Monocytes % 5.6 % (1.7-12.7); Neutrophils # 14.4 10*3/uL (1.4-7.4); Neutrophils % 79.8 % (38.7-73.9); Platelet Count 331 T/CUMM (130-400); Red Blood Count 2.89 MC/CUMM (3.8-5.5); Red Cell Distribution Width 17.2 % (9.3-17.3); White Blood Count 18.1 T/CUMM (4-12)
[2017-07-18 11:14] LABS: Calcium 8.8 MG/DL (8.5-10.1); Osmolality,Calculated 271.8 MOS/KG (273-304); Potassium 3.3 MMOL/L (3.5-5.1)
[2017-07-18 12:23] VITALS: BP 106/64
[2017-07-18] MEDS: COLLAGENASE OINT 30 GM TUBE TOP SCH (14:17)
== END 2017-07-18 14:15 | DRG 981 ==
LOC: EDUNIT# → EDBD → N.ED 23:18 → N.EDINP 07-04 03:51 → SUPCPDRO 07-04 03:51 → N.5E 07-04 04:11
PROVIDERS: ADMIT Hospitalist; ATTEND Hospitalist